=== PATIENT | female | born 1945 | race Caucasian/White ===

== ENCOUNTER 2022-10-25 01:04 | Inpatient (IN) ==
[2022-10-25] MEDS ORDERED: ONDANSETRON INJ 2 MG/ML 2 ML VIAL IV STA ×2 (01:09→02:56)
[2022-10-25] MEDS ORDERED: SODIUM CHLORIDE 0.9% 1000ML 1,000 ML IV ONE ×2 (01:09→05:23)
[2022-10-25] MEDS ORDERED: fentaNYL citrate PF 100 MCG/2 ML VIAL IV STA ×2 (01:09→02:56)
--- NOTE | 2022-10-25 01:13 | Emergency Department Note ---
History of Present Illness General Chief complaint: Abdominal Pain Stated complaint: Diarrhea History of Present Illness 77-year-old female presents emergency department with complaint of nausea vomiting abdominal pain and bloody stools that started at approximately 5 PM this evening. Patient has a prior history of colon resection hysterectomy appendectomy and diverticulitis. Patient states that she is extremely nauseated had shaking chills rigors. Patient denies any other complaints except that she did state on arrival that she had chest pain at 5 PM and took 2 Excedrin. Patient does not complain of any chest pain at this time. There are no other mitigating or alleviating factors Home Medications Medication Instructions Recorded Confirmed Type acetaminophen 325 mg tablet 325 mg PO Q4 PRN Pain 11/16/21 10/25/22 History atorvastatin 20 mg tablet 20 mg PO DAILY 11/16/21 10/25/22 History carbidopa 25 mg-levodopa 100 mg 1 tab PO 5XD 11/16/21 10/25/22 History tablet denosumab 60 mg/mL subcutaneous 60 mg subcut UD 11/16/21 10/25/22 History syringe (Prolia) duloxetine 30 mg capsule,delayed 30 mg PO QPM 11/16/21 10/25/22 History release famotidine 20 mg tablet 20 mg PO BID 11/16/21 10/25/22 History lisinopril 20 mg tablet 20 mg PO BID 11/16/21 10/25/22 History metoprolol succinate 25 mg 25 mg PO HS 11/16/21 10/25/22 History tablet,extended release 24 hr metronidazole 0.75 % topical cream 1 applic topical BID PRN ROSACEA 11/16/21 10/25/22 History nortriptyline 10 mg capsule 10 mg PO HS 11/16/21 10/25/22 History potassium chloride 20 mEq 20 meq PO QAM 11/16/21 10/25/22 History tablet,extended release ldzmdsam-udo-fdiba acid 0.4 1 tab PO DAILY 10/25/22 10/25/22 History mg-lycopene 300 mcg-lutein 250 mcg tablet nitrofurantoin macrocrystal 100 mg 100 mg PO HS 10/25/22 10/25/22 History capsule Allergies Allergy/AdvReac Type Severity Reaction Status Date / Time mannitol [From Reclast] Allergy Unknown INFLAMMATORY Verified 10/25/22 01:33 ARTHRITIS Penicillins Allergy Unknown FROM Verified 10/25/22 01:33 CHILDHOOD, UNKNOWN DETAILS sulfamethoxazole Allergy Unknown Hives Verified 10/25/22 01:33 [From Bactrim] trimethoprim [From Bactrim] Allergy Unknown Hives Verified 10/25/22 01:33 water for injection,sterile Allergy Unknown INFLAMMATORY Verified 10/25/22 01:33 [From Reclast] ARTHRITIS zoledronic acid Allergy Unknown INFLAMMATORY Verified 10/25/22 01:33 [From Reclast] ARTHRITIS amlodipine AdvReac swelling Verified 10/25/22 01:33 in ankles Past Med/Surg History Medical History Acid reflux Age related osteoporosis Fecal incontinence SACONEURAL MODULATOR IMPLANTED LEFT BUTTOX Frequent UTI PROPHYLACTIC ABX FOR DAILY MOST RECENT JUL 2021 - NO CURRENT SYMPTOMS History of cystocele & RECTOCELE REPAIR History of GI bleed 2014 History of pyelonephritis History of skin cancer HTN (hypertension) Hyperlipidemia Inflammatory arthritis Osteoarthritis Parkinson disease Rosacea Scoliosis Surgical History History of bowel resection FOR FAILED RECTOCELE History of cataract surgery right History of colonoscopy History of endoscopy History of hernia repair History of oophorectomy History of surgery SACONEURAL MODULATOR IMPLANT LEFT BUTTOX History of tonsillectomy and adenoidectomy History of vaginal hysterectomy WITH APPENDECTOMY Family History Grandmother (Maternal) Family history of diabetes mellitus Family history of colon cancer Social History Smoking Status: Former smoker Tobacco Type: Cigarettes Second Hand Exposure: No; Hx Alcohol Use: Yes (quit ~1991) Hx Substance Use: No Preferred Language: Portuguese Communication Ability: Effective Sociology Research Assistant Required: No Beliefs That Will Affect Care: None Current Living Situation: Spouse Feels Safe at Home: Yes Assistive Devices: Glasses and Other Review of Systems A total of 10 systems reviewed and were otherwise negative Cardiovascular: + chest pain Gastrointestinal: + abdominal pain, + nausea, + vomiting and + blood in stools Physical Exam Vital Signs Vital Signs - 24 hr 10/25/22 01:34 10/25/22 01:35 10/25/22 01:32 Temperature 36.4 C L Temperature Source Axillary Pulse Rate 75 75 78 Pulse Rate from SpO2 Sensor Pulse Rhythm Regular Respiratory Rate 23 22 Respiratory Effort / Characteristics Non-Labored Spontaneous Respiratory Depth Normal Respiratory Pattern Regular Blood Pressure 207/96 H Blood Pressure Mean 133 Blood Pressure Position Semi-fowlers Pulse Oximetry 100 100 Oxygen Delivery Method Room Air Room Air Sepsis Recent Fever Within 48 Hours No Sepsis New/Unexplained Change in Mental Status N/A Sepsis Action Taken by Nursing No Action Required 10/25/22 02:15 10/25/22 02:15 10/25/22 03:00 Temperature Temperature Source Pulse Rate 78 Pulse Rate from SpO2 Sensor 79 Pulse Rhythm Respiratory Rate 23 Respiratory Effort / Characteristics Respiratory Depth Respiratory Pattern Blood Pressure 194/96 H 169/101 H Blood Pressure Mean 128 123 Blood Pressure Position Pulse Oximetry 99 Oxygen Delivery Method Room Air Sepsis Recent Fever Within 48 Hours Sepsis New/Unexplained Change in Mental Status Sepsis Action Taken by Nursing 10/25/22 03:00 10/25/22 03:30 10/25/22 03:30 Temperature Temperature Source Pulse Rate 86 94 H Pulse Rate from SpO2 Sensor Pulse Rhythm Respiratory Rate 22 19 Respiratory Effort / Characteristics Respiratory Depth Respiratory Pattern Blood Pressure 181/96 H Blood Pressure Mean 124 Blood Pressure Position Pulse Oximetry Oxygen Delivery Method Sepsis Recent Fever Within 48 Hours Sepsis New/Unexplained Change in Mental Status Sepsis Action Taken by Nursing GENERAL: Patient is awake alert in no acute distress but patient is anxious EYES: The conjunctivae are clear. The pupils are round and reactive. EARS, NOSE, MOUTH AND THROAT: The nose is without any evidence of any deformity. Mucous membranes are moist. Tongue is midline. NECK: The neck is nontender and supple. RESPIRATORY: Normal respiratory effort is noted there is no evidence of wheezing rhonchi or rales CARDIOVASCULAR: Regular rate and rhythm noted there no murmurs rubs or gallops normal S1 normal S2. GASTROINTESTINAL: The abdomen is soft. Abdomen is tender in the right lower quadrant there is no normal aortic pulsations or masses there is a midline surgical scar present; bowel sounds are present BACK: No midline tenderness or or step-off noted range of motion in flexion extension as well as rotation no signs of muscle spasm noted MUSCULOSKELETAL/EXTREMITIES: There is no evidence of gross deformity full range of motion is noted in the hips and shoulders. SKIN: There is no obvious evidence of any rash. There are no petechiae, pallor or cyanosis noted. NEUROLOGIC: Patient is awake alert and oriented x3 strength is symmetric Course Reevaluation(s) Reevaluation #1: Patient was started on IV fluids, IV Zofran, IV fentanyl. Patient continued to complain of pain. Patient's abdomen soft. [facility] Time: 03:48 Reevaluation #2: Patient was ordered 2 L of fluid has an elevated lactate and has an elevated white blood cell count. [facility] the patient will be receiving antibiotics. The differential still includes ischemic colitis as well. CT was not revealing. Patient will be admitted. Patient is not in septic shock at the time of admission Time: 04:30 Consultations Consultation #1: [facility] Time: 03:48 Administered Medications Discontinued Medications Fentanyl Citrate (Fentanyl Citrate Pf 100 Mcg/2 Ml Vial) 50 mcg IV NOW STA Stop: 10/25/22 01:10 Last Admin: 10/25/22 01:28 Dose: 50 mcg Documented By: Fentanyl Citrate (Fentanyl Citrate Pf 100 Mcg/2 Ml Vial) 50 mcg IV NOW STA Stop: 10/25/22 02:57 Last Admin: 10/25/22 03:01 Dose: 50 mcg Documented By: Sodium Chloride (Nss 1000ml) 1,000 mls @ 999 mls/hr IV .Q1H1M ONE Stop: 10/25/22 02:09 Last Infusion: 10/25/22 02:55 Dose: 0 mls/hr Documented By: Admin: 10/25/22 01:13 Dose: 999 mls/hr Documented By: Promethazine HCl (Phenergan) 12.5 mg in 50.5 mls @ 202 mls/hr IV NOW STA Stop: 10/25/22 04:44 Last Admin: 10/25/22 04:46 Dose: 202 mls/hr Documented By: Ioversol (Optiray 350 100ml) 100 ml IV ONCE ONE Stop: 10/25/22 01:56 Last Admin: 10/25/22 01:55 Dose: 86 ml Documented By: KARLOS Morphine Sulfate (Morphine Sulfate 2 Mg/Ml Carp) 2 mg IV NOW STA Stop: 10/25/22 04:28 Last Admin: 10/25/22 04:38 Dose: 2 mg Documented By: Ondansetron HCl (Ondansetron Inj 2 Mg/Ml 2 Ml Vial) 4 mg IV NOW STA Stop: 10/25/22 01:10 Last Admin: 10/25/22 01:28 Dose: 4 mg Documented By: Ondansetron HCl (Ondansetron Inj 2 Mg/Ml 2 Ml Vial) 4 mg IV NOW STA Stop: 10/25/22 02:57 Last Admin: 10/25/22 03:01 Dose: 4 mg Documented By: Medical Decision Making Medical Records Attestation: I reviewed the patient's medical records. Home Medications Current Medication List: was personally reviewed by ia Laboratory Data Attestation: I reviewed the patient's lab results. Patient has leukocytosis as interpreted by me 10/25/22 01:14 10/25/22 01:14 Lab Results 10/25/22 10/25/22 10/25/22 Range/Units 01:14 01:14 01:53 WBC 18.02 H (4.8-10.8) K/ul RBC 5.36 (4.20-5.40) M/uL Hgb 16.3 H (12.0-16.0) g/dl Hct 47.1 H (37.0-47.0) % MCV 87.9 (80.0-100.0) fL MCH 30.4 (25.0-34.0) pg MCHC 34.6 (32.0-36.0) g/dL RDW Std Deviation 44.0 (36.4-46.3) fL RDW Coeff of Fariba 13.9 (11.5-14.5) % Plt Count 189 (130-400) K/uL MPV 11.4 (9.4-12.4) fL Immature Gran % (Auto) 0.5 % Neut % (Auto) 85.2 % Lymph % (Auto) 5.3 % Cloud % (Auto) 8.7 % Eos % (Auto) 0.1 % Baso % (Auto) 0.2 % Neut # (Auto) 15.37 H (1.40-6.50) K/uL Lymph # (Auto) 0.95 L (1.2-3.4) K/uL Cloud # (Auto) 1.56 H (0.11-0.59) K/uL Eos # (Auto) 0.01 (0-0.50) K/uL Baso # (Auto) 0.04 (0-0.2) K/uL Immature Gran # (Auto) 0.09 (0.01-0.20) K/uL Sodium 137 (136-145) mmol/L Potassium 3.4 L (3.5-5.1) mmol/L Chloride 106 (98-107) mmol/L Carbon Dioxide 20 L (21-32) mmol/L Anion Gap 11 (3-11) BUN 36 H (6-23) mg/dl Creatinine 0.66 (0.6-1.2) mg/dl Est Cr Clr Drug Dosing 59.9 ml/min Est GFR ( Amer) 97.4 ml/min Est GFR (Non-Af Amer) 84.0 ml/min BUN/Creatinine Ratio 54.5 H (10-20) Glucose 161 H (70-99(Fasting)) mg/dl Lactate (0.4-2.0) mmol/L Calcium 8.8 (8.6-10.3) mg/dl Total Bilirubin 0.7 (0.2-1.0) mg/dl AST 32 (13-39) U/L ALT 25 (7-52) U/L Alkaline Phosphatase 80 (34-104) U/L Troponin I High Sens 6.5 (0-14) pg/ml Total Protein 5.7 L (6.0-8.3) gm/dl Albumin 3.5 (3.4-5.0) gm/dl Globulin 2.2 L (2.5-4.0) gm/dl Albumin/Globulin Ratio 1.6 (0.9-2) Lipase 21 (11-82) U/L Urine Color Urine Appearance (Clear) Urine pH (4.5-7.5) Ur Specific [place] (1.000-1.030) Urine Protein (Negative) Urine Glucose (UA) (Negative) Urine Ketones (Negative) Urine Blood (Negative) Urine Nitrite (Negative) Urine Bilirubin (Negative) Urine Urobilinogen (Negative) Ur Leukocyte Esterase (Negative) SARS-CoV-2, RNA, NAAT NEGATIVE (NEGATIVE) 10/25/22 10/25/22 Range/Units 01:57 04:24 WBC (4.8-10.8) K/ul RBC (4.20-5.40) M/uL Hgb (12.0-16.0) g/dl Hct (37.0-47.0) % MCV (80.0-100.0) fL MCH (25.0-34.0) pg MCHC (32.0-36.0) g/dL RDW Std Deviation (36.4-46.3) fL RDW Coeff of Fariba (11.5-14.5) % Plt Count (130-400) K/uL MPV (9.4-12.4) fL Immature Gran % (Auto) % Neut % (Auto) % Lymph % (Auto) % Cloud % (Auto) % Eos % (Auto) % Baso % (Auto) % Neut # (Auto) (1.40-6.50) K/uL Lymph # (Auto) (1.2-3.4) K/uL Cloud # (Auto) (0.11-0.59) K/uL Eos # (Auto) (0-0.50) K/uL Baso # (Auto) (0-0.2) K/uL Immature Gran # (Auto) (0.01-0.20) K/uL Sodium (136-145) mmol/L Potassium (3.5-5.1) mmol/L Chloride (98-107) mmol/L Carbon Dioxide (21-32) mmol/L Anion Gap (3-11) BUN (6-23) mg/dl Creatinine (0.6-1.2) mg/dl Est Cr Clr Drug Dosing ml/min Est GFR ( Amer) ml/min Est GFR (Non-Af Amer) ml/min BUN/Creatinine Ratio (10-20) Glucose (70-99(Fasting)) mg/dl Lactate 3.0 H* (0.4-2.0) mmol/L Calcium (8.6-10.3) mg/dl Total Bilirubin (0.2-1.0) mg/dl AST (13-39) U/L ALT (7-52) U/L Alkaline Phosphatase (34-104) U/L Troponin I High Sens (0-14) pg/ml Total Protein (6.0-8.3) gm/dl Albumin (3.4-5.0) gm/dl Globulin (2.5-4.0) gm/dl Albumin/Globulin Ratio (0.9-2) Lipase (11-82) U/L Urine Color Yellow Urine Appearance Clear (Clear) Urine pH 6.0 (4.5-7.5) Ur Specific [place] 1.019 (1.000-1.030) Urine Protein Negative (Negative) Urine Glucose (UA) Negative (Negative) Urine Ketones Trace H (Negative) Urine Blood Negative (Negative) Urine Nitrite Negative (Negative) Urine Bilirubin Negative (Negative) Urine Urobilinogen Negative (Negative) Ur Leukocyte Esterase Negative (Negative) SARS-CoV-2, RNA, NAAT (NEGATIVE) Imaging Data Attestation: I personally reviewed and interpreted this imaging study as follows: My Impression: CT abdomen pelvis interpreted by me is negative for bowel obstruction Radiologist's Impression: Abdomen/Pelvis CT 10/25/22 01:09 Exam(s): CT ABDOMEN + PELVIS With Contrast IV Amt: 86 ML OPTIRAY 350 EXAM: CT Abdomen and Pelvis With Intravenous Contrast CLINICAL HISTORY: Abdominal pain. TECHNIQUE: Axial computed tomography images of the abdomen and pelvis with intravenous contrast. CTDI is 5.68 mGy and DLP is 256.34 mGy-cm. Automated exposure control was utilized for the study. A dose lowering technique was utilized adhering to the principles of ALARA. CONTRAST: Patient received 86 ML OPTIRAY 350 of IV contrast COMPARISON: No relevant prior studies available. FINDINGS: Lung bases: Unremarkable. No mass. No consolidation. ABDOMEN: Liver: Unremarkable. No mass. Gallbladder and bile ducts: Unremarkable. No calcified stones. No ductal dilation. Pancreas: Unremarkable. No mass. No ductal dilation. Spleen: Unremarkable. No splenomegaly. Adrenals: Unremarkable. No mass. Kidneys and ureters: Mild bilateral hydronephrosis. Nonobstructing punctate right renal calculus. No obstructing nephrolithiasis. Stomach and bowel: The colon is fluid-filled, this is consistent with diarrheal state. Diverticulosis. No obstruction. No mucosal thickening. PELVIS: Appendix: No findings to suggest acute appendicitis. Bladder: Unremarkable. No mass. Reproductive: Unremarkable as visualized. ABDOMEN and PELVIS: Intraperitoneal space: Unremarkable. No free air. No significant fluid collection. Bones/joints: There are degenerative changes of the spine. No fracture. No dislocation. Soft tissues: Unremarkable. Vasculature: Mild atherosclerosis. No abdominal aortic aneurysm. Lymph nodes: Unremarkable. No enlarged lymph nodes. IMPRESSION: 1. Mild bilateral hydronephrosis. 2. The colon is fluid-filled, this is consistent with diarrheal state. 3. Nonobstructing punctate right renal calculus. No obstructing nephrolithiasis. 4. Diverticulosis. Electronically signed by: Lay Perea MD 10/25/22 03:37 AM ECG Data Attestation: I personally reviewed and interpreted this ECG as follows: Additional Comments: EKG interpreted by me sinus rhythm rate of [address]-T change no obvious ST segment elevation or depression normal intervals normal axis Telemetry was ordered by me, interpreted as sinus rhythm rate of 70 MDM Narrative Medical decision making differential diagnosis includes colitis, diverticulitis, bowel obstruction, gastroenteritis, lower GI bleed, electrolyte abnormality Plan is to check labs, EKG, CT abdomen pelvis, give IV fluids, antiemetics, opiates EMS gave me bedside report External medical records were reviewed by me Patient continued to complain of abdominal pain was started on IV fluids Zofran and fentanyl x2. Patient has an elevated white blood cell count, patient's CT is unrevealing, [facility] Impression & Plan Abdominal pain, Leukocytosis Discharge Plan Visit Data Chief Complaint: Abdominal Pain Stated Complaint: Diarrhea ED Provider: Brett Alexander Discharge Problem: Abdominal pain, Leukocytosis Patient Disposition: Admitted As Inpatient Forms Stand Alone Forms: My [facility] Prescriptions Prescriptions: No Action acetaminophen 325 mg Tablet 325 mg PO Q4 PRN (Reason: Pain) atorvastatin 20 mg Tablet 20 mg PO DAILY lisinopril 20 mg Tablet 20 mg PO BID famotidine 20 mg Tablet 20 mg PO BID nortriptyline 10 mg Capsule 10 mg PO HS metronidazole 0.75 % Cream 1 applic TOPICAL BID PRN (Reason: ROSACEA) Rx Instructions: apply to face metoprolol succinate 25 mg Tablet Extended Release 24 Hr 25 mg PO HS carbidopa-levodopa 25-100 mg Tablet 1 tab PO 5XD Patient Comments: 5 X PER DAY 7 AM , 11 AM, 3 PM, 7 PM AND 11 PM Rx Instructions: 0700,1100,1500,1900,2300 duloxetine 30 mg Capsule,Delayed Release(Dr/Ec) 30 mg PO QPM Prolia 60 mg/mL Syringe 60 mg SUBCUT UD Patient Comments: EVERY 6 MONTHS - LAST EARLY AUG 2021 potassium chloride 20 mEq Tablet Extended Release 20 meq PO QAM nitrofurantoin macrocrystal 100 mg Capsule 100 mg PO HS Rx Instructions: must administer with a meal/food Complete 50 Plus 0.4 mg-300 mcg- 250 mcg Tablet 1 tab PO DAILY Referrals Referrals: Ese Salazar DO [Primary Care Provider] -
[2022-10-25 01:54] LABS: Basophils # (auto) 0.04 K/uL (0-0.2); Basophils % (auto) 0.2 %; Eosinophils # (auto) 0.01 K/uL (0-0.50); Eosinophils % (auto) 0.1 %; Hematocrit (blood only) 47.1 % (37.0-47.0); Hemoglobin 16.3 g/dl (12.0-16.0); Immature Granulocytes # (auto) 0.09 K/uL (0.01-0.20); Immature Granulocytes % (auto) 0.5 %; Lymphocytes # (auto) 0.95 K/uL (1.2-3.4); Lymphocytes % (auto) 5.3 %; Mean Corpuscular Hemoglobin 30.4 pg (25.0-34.0); Mean Corpuscular Hgb Conc 34.6 g/dL (32.0-36.0); Mean Corpuscular Volume 87.9 fL (80.0-100.0); Mean Platelet Volume 11.4 fL (9.4-12.4); Monocytes # (auto) 1.56 K/uL (0.11-0.59); Monocytes % (auto) 8.7 %; Neutrophils # (auto) 15.37 K/uL (1.40-6.50); Neutrophils % (auto) 85.2 %; Platelet Count 189 K/uL (130-400); RDW Coefficient of Variation 13.9 % (11.5-14.5); Red Blood Count 5.36 M/uL (4.20-5.40); White Blood Count 18.02 K/ul (4.8-10.8)
[2022-10-25] MEDS ORDERED: OPTIRAY 350 100ml IV ONE (01:55)
[2022-10-25 02:55] LABS: Albumin Globulin Ratio 1.6 (0.9-2); Albumin Level 3.5 gm/dl (3.4-5.0); BUN Creatinine Ratio 54.5 (10-20); Bilirubin,Total 0.7 mg/dl (0.2-1.0); Calcium 8.8 mg/dl (8.6-10.3); Creatinine Clr Calc Pharmacy 59.9 ml/min; Est GFR (African American) 97.4 ml/min; Globulin 2.2 gm/dl (2.5-4.0); Potassium 3.4 mmol/L (3.5-5.1); Total Protein 5.7 gm/dl (6.0-8.3); Troponin I High Sensitivity 6.5 pg/ml (0-14)
[2022-10-25 03:01] LABS: Appearance Urine Clear (Clear); Bilirubin Urine Negative (Negative); Blood Urine Negative (Negative); Color Urine Yellow; Glucose Urine UA Negative (Negative); Ketones Urine Trace (Negative); Leukocyte Esterase Urine Negative (Negative); Nitrite Urine Negative (Negative); Protein Urine Negative (Negative); Specific Gravity Urine 1.019 (1.000-1.030); Urobilinogen Urine Negative (Negative)
--- NOTE | 2022-10-25 03:38 | CT Scan Report ---
Exam(s): CT ABDOMEN + PELVIS With Contrast IV Amt: 86 ML OPTIRAY 350 EXAM: CT Abdomen and Pelvis With Intravenous Contrast CLINICAL HISTORY: Abdominal pain. TECHNIQUE: Axial computed tomography images of the abdomen and pelvis with intravenous contrast. CTDI is 5.68 mGy and DLP is 256.34 mGy-cm. Automated exposure control was utilized for the study. A dose lowering technique was utilized adhering to the principles of ALARA. CONTRAST: Patient received 86 ML OPTIRAY 350 of IV contrast COMPARISON: No relevant prior studies available. FINDINGS: Lung bases: Unremarkable. No mass. No consolidation. ABDOMEN: Liver: Unremarkable. No mass. Gallbladder and bile ducts: Unremarkable. No calcified stones. No ductal dilation. Pancreas: Unremarkable. No mass. No ductal dilation. Spleen: Unremarkable. No splenomegaly. Adrenals: Unremarkable. No mass. Kidneys and ureters: Mild bilateral hydronephrosis. Nonobstructing punctate right renal calculus. No obstructing nephrolithiasis. Stomach and bowel: The colon is fluid-filled, this is consistent with diarrheal state. Diverticulosis. No obstruction. No mucosal thickening. PELVIS: Appendix: No findings to suggest acute appendicitis. Bladder: Unremarkable. No mass. Reproductive: Unremarkable as visualized. ABDOMEN and PELVIS: Intraperitoneal space: Unremarkable. No free air. No significant fluid collection. Bones/joints: There are degenerative changes of the spine. No fracture. No dislocation. Soft tissues: Unremarkable. Vasculature: Mild atherosclerosis. No abdominal aortic aneurysm. Lymph nodes: Unremarkable. No enlarged lymph nodes. IMPRESSION: 1. Mild bilateral hydronephrosis. 2. The colon is fluid-filled, this is consistent with diarrheal state. 3. Nonobstructing punctate right renal calculus. No obstructing nephrolithiasis. 4. Diverticulosis. Electronically signed by: Lay Perea MD 10/25/22 03:37 AM
[2022-10-25] MEDS ORDERED: PROMETHAZINE HCL 12.5 MG in SODIUM CHLORIDE 0.9% 50 ML IV STA (04:27)
[2022-10-25] MEDS ORDERED: MoRPHine SULFATE 2 MG/ML CARP IV STA (04:27)
[2022-10-25] MEDS ORDERED: PROMETHAZINE 12.5 MG/50.5 ML BAG IV STA (04:30)
[2022-10-25] MEDS: POTASSIUM CHLORIDE / WTR 10 MEQ/100 ML PLCT IV SCH ×2 (05:52→06:53)
[2022-10-25] MEDS ORDERED: NITROGLYCERIN SL 0.4 MG/TAB TAB SL PRN (06:11)
[2022-10-25] MEDS ORDERED: hydrALAZINE HCL 20 MG/ML VIAL IV PRN (06:11)
[2022-10-25 07:00] LABS: Basophils # (auto) 0.02 K/uL (0-0.2); Basophils % (auto) 0.1 %; Hematocrit (blood only) 45.8 % (37.0-47.0); Hemoglobin 15.8 g/dl (12.0-16.0); Immature Granulocytes # (auto) 0.06 K/uL (0.01-0.20); Immature Granulocytes % (auto) 0.4 %; Lymphocytes # (auto) 0.66 K/uL (1.2-3.4); Lymphocytes % (auto) 4.8 %; Mean Corpuscular Hgb Conc 34.5 g/dL (32.0-36.0); Mean Corpuscular Volume 87.1 fL (80.0-100.0); Mean Platelet Volume 10.5 fL (9.4-12.4); Monocytes # (auto) 0.65 K/uL (0.11-0.59); Monocytes % (auto) 4.7 %; Platelet Count 197 K/uL (130-400); RDW Coefficient of Variation 13.8 % (11.5-14.5); RDW Standard Deviation 44.4 fL (36.4-46.3); Red Blood Count 5.26 M/uL (4.20-5.40); White Blood Count 13.89 K/ul (4.8-10.8)
[2022-10-25 07:18] LABS: BUN Creatinine Ratio 40.6 (10-20); Creatinine Clr Calc Pharmacy 57.3 ml/min; Est GFR (Non-African American) 82.8 ml/min; Magnesium 1.8 mg/dl (1.7-2.4); Potassium 3.7 mmol/L (3.5-5.1)
[2022-10-25 07:25] LABS: Troponin I High Sensitivity 12.8 pg/ml (0-14)
[2022-10-25] MEDS: D5W AND 1/2NSS 1,000 ML IV SCH ×2 (07:30→14:07)
--- NOTE | 2022-10-25 07:37 | History and Physical Report ---
DATE OF ADMISSION: 10/25/2022. CHIEF COMPLAINT: Abdominal pain, nausea, vomiting, diarrhea. HISTORY OF PRESENT ILLNESS: A 77-year-old female with past medical history significant for hypertension, GERD, history of fecal incontinence, cystocele, senile osteoporosis, degenerative disk disease, Parkinson's disease, depression, history of GI bleed, history of recurrent UTIs, presents with nausea, vomiting, abdominal pain, and bloody diarrhea. The patient says since yesterday 8:00 p.m., had several episodes of diarrhea. She noticed blood in her stools and also she had vomiting. She was having a episode of vomiting when I was examining the patient, greenish vomitus. Complains of severe abdominal pain, radiating to the back. She said earlier around 4:00 p.m. yesterday, she had some chest tightness, but that got resolved now. Denies any shortness of breath, no fevers, no cough. Has some runny nose. No sore throat. No headache. She is micturating fine, afebrile. No eating of food outside. No one is sick in the family. ALLERGIES: BACTRIM, PENICILLIN, MANNITOL, RECLAST, ZOLEDRONIC ACID, AMLODIPINE. PAST MEDICAL HISTORY: As mentioned above. PAST SURGICAL HISTORY: induced by D and E, appendectomy, implantation of neurostimulator in sacral nerve in 2019, removal of bilateral ovaries, tonsillectomy and adenoidectomy, repair of bladder and vaginal cystocele, vaginal hysterectomy. MEDICATIONS: The patient is on Tylenol 325 mg p.o. q. 4 hours p.r.n., atorvastatin 20 mg p.o. daily, carbidopa/levodopa 1 tablet p.o. 5 times a day, duloxetine 30 mg p.o. p.m., famotidine 20 mg p.o. b.i.d., lisinopril 20 mg p.o. b.i.d., metoprolol succinate 25 mg p.o. at bedtime, multivitamin 1 tablet p.o. daily, nitrofurantoin 100 mg p.o. at bedtime, nortriptyline 10 mg p.o. at bedtime, potassium chloride 20 mEq p.o. a.m., Prolia 60 mg subcutaneous as directed. FAMILY HISTORY: Significant for mother has breast cancer, hypertension, stroke; father has prostate cancer, heart disorder; maternal grandmother had diabetes and heart disorder. SOCIAL HISTORY: . Quit smoking in 1985, smoked 1 pack a day for 10 years. No alcohol use. No drug use. REVIEW OF SYSTEMS: As per HPI. Rest of the review of systems is negative. PHYSICAL EXAMINATION: GENERAL: The patient is of moderate build, seems to be in pain. VITAL SIGNS: Temperature 36.4, pulse 94, respiratory rate 19, blood pressure 181/96, oxygen 99% on room air. HEENT: Extraocular muscles intact. Atraumatic. NECK: No neck masses seen. CARDIOVASCULAR: S1 and S2 heard. Regular rate and rhythm. No murmur, no gallop. RESPIRATORY SYSTEM: Normal AP diameter. No accessory muscle use. No wheezing. ABDOMEN: Soft, bowel sounds sluggish. No distention. Diffuse tenderness and guarding present. No rigidity. CENTRAL NERVOUS SYSTEM: Alert and oriented. Speech is clear. No facial droop. Obeys simple commands. Moves extremities. EXTREMITIES: No edema, no erythema. LABORATORY DATA: WBC 18, hemoglobin 16.3, hematocrit 47.1, platelets 189. Sodium 137, potassium 3.4, chloride 106, bicarbonate 20, BUN 36, creatinine 0.6, serum glucose 161. Lactate pending. Calcium 8.8, total bilirubin 0.7, AST 32, ALT 25, alkaline phosphatase 80. Troponin I high sensitivity 6.5, Lipase 21. Urinalysis, trace ketones. SARS-CoV-2 rapid test negative. IMAGING DATA: CT abdomen and pelvis with IV contrast, mild bilateral hydronephrosis. The colon is fluid filled. This is consistent with diarrheal state. Nonobstructing right renal calculus, nonobstructing nephrolithiasis, diverticulosis. EKG: Sinus rhythm with PACs at the rate of 70, nonspecific ST abnormalities. ASSESSMENT AND PLAN: This 77-year-old female presents with abdominal pain, nausea, vomiting, and bloody diarrhea. 1. Abdominal pain, nausea, vomiting, bloody diarrhea. CT abdomen and pelvis showed some diverticulosis and consistent with diarrheal state, otherwise unremarkable. Will keep her n.p.o., IV fluids, IV antiemetics, IV morphine p.r.n. Will do stool cultures and stool for C. diff and consult GI. Closely monitor in the med tele.Follow labs. 2. Leukocytosis, possibly from diarrheal illness. Will follow the repeat labs. 3. Hypertension: Continue her home lisinopril and metoprolol succinate. Will monitor the blood pressure. 4. Gastroesophageal reflux disease: Will place on IV Pepcid for now. 5. History of Parkinson's: Continue carbidopa/levodopa. 6. Hyperlipidemia: Continue statin. 7. Depression: Continue duloxetine. 8. History of recurrent urinary tract infections: On Macrobid. 9. Deep venous thrombosis prophylaxis: Sequential compression devices for now. DISPOSITION: Closely monitor in the med tele. PT/OT prior to discharge. Social service to help with discharge planning. Level 1 full code. Job [facility] [id number] [facility]
[2022-10-25] MEDS: CARBIDOPA/LEVODOPA 25/100MG TAB PO SCH ×5 (07:38→23:06)
[2022-10-25] MEDS: ATORVASTATIN 20 MG TAB PO SCH (08:06)
[2022-10-25] MEDS: POTASSIUM CHLORIDE CRTAB 20 MEQ TABCR PO SCH (08:06)
[2022-10-25] MEDS ORDERED: FAMOTIDINE 20MG/5ML IV PUSH IV ONE (08:09)
[2022-10-25] MEDS: FAMOTIDINE 20 MG in SYRINGE 3 ML IV SCH ×2 (08:09→20:16)
[2022-10-25] MEDS ORDERED: lisinopril 20 MG TAB PO SCH (09:00)
[2022-10-25] MEDS: MoRPHine SULFATE 4 MG/ML 1 ML CARP\\VIAL IV PRN ×2 (09:55→15:53)
--- NOTE | 2022-10-25 10:15 | Gastrointestinal Consultation ---
Date of Consultation October 25, 2022 Assessment & Plan (1) Abdominal pain: Though not specifically seen on CT, her symptoms/presentation are most consistent with ischemic colitis. (2) Leukocytosis: Plan 1. IV Cipro/Flagyl. 2. Clear liquids po. 3. Daily CBC, CMP. 4. Though does not seem to have a surgical abdomen on exam, would consider surgical consult if continues w severe pain. Supervising Physician Co-Signing Physician Notes I performed a history and physical examination of the patient today, including specifically on physical exam - soft abdomen. I have discussed the patient's management with the advanced practitioner. Please refer to the nurse practitioner's note for the documented findings and plan of care. Colitis, Infectious Vs ischemic. Stool studies. IV ABx. Colonoscopy as OP. Recall GI if needed. History of Present Illness Reason for Consultation: Nausea, vomiting, bloody diarrhea Requesting Physician: Dr. Brar Attending Physician: Hernan Veronica MD History of Present Illness Ms. Bambi Rosario is a 77yr old female pt of Dr. Ese Salazar w a hx of HTN, GERD, osteoporosis, DDD, Parkinson's disease, UTIs. At the time that I saw her, she was in pain, indicating the area being the lower part of the abdomen and she had just received pain medication and was groggy. She was able to tell me that her symptoms began suddenly yesterday afternoon around 5PM, initially w sharp pain, followed by a BM that was brown w blood mixed in and was loose. She also had chills. After that she had 2 more liquid BMs consisting of mostly blood. In the ED, she had an episode of vomiting. Stools for C-diff and GI path are pending. She hasn't yet received antibiotics. On arrival, CTAP showed a fluid filled colon w diverticulosis. WBC was 18 on arrival ->13 this morning. She is hypertensive (171/90), mildly tachycardic in the 90's and afebrile. She continues w sigificant abdominal discomfort/tenderness but abd is soft on exam Allergies Allergy/AdvReac Type Severity Reaction Status Date / Time mannitol [From Reclast] Allergy Unknown INFLAMMATORY Verified 10/25/22 01:33 ARTHRITIS Penicillins Allergy Unknown FROM Verified 10/25/22 01:33 CHILDHOOD, UNKNOWN DETAILS sulfamethoxazole Allergy Unknown Hives Verified 10/25/22 01:33 [From Bactrim] trimethoprim [From Bactrim] Allergy Unknown Hives Verified 10/25/22 01:33 water for injection,sterile Allergy Unknown INFLAMMATORY Verified 10/25/22 01:33 [From Reclast] ARTHRITIS zoledronic acid Allergy Unknown INFLAMMATORY Verified 10/25/22 01:33 [From Reclast] ARTHRITIS amlodipine AdvReac swelling Verified 10/25/22 01:33 in ankles Home Medications Medication Instructions Recorded Confirmed Type acetaminophen 325 mg tablet 325 mg PO Q4 PRN Pain 11/16/21 10/25/22 History atorvastatin 20 mg tablet 20 mg PO DAILY 11/16/21 10/25/22 History carbidopa 25 mg-levodopa 100 mg 1 tab PO 5XD 11/16/21 10/25/22 History tablet denosumab 60 mg/mL subcutaneous 60 mg subcut UD 11/16/21 10/25/22 History syringe (Prolia) duloxetine 30 mg capsule,delayed 30 mg PO QPM 11/16/21 10/25/22 History release famotidine 20 mg tablet 20 mg PO BID 11/16/21 10/25/22 History lisinopril 20 mg tablet 20 mg PO BID 11/16/21 10/25/22 History metoprolol succinate 25 mg 25 mg PO HS 11/16/21 10/25/22 History tablet,extended release 24 hr metronidazole 0.75 % topical cream 1 applic topical BID PRN ROSACEA 11/16/21 10/25/22 History nortriptyline 10 mg capsule 10 mg PO HS 11/16/21 10/25/22 History potassium chloride 20 mEq 20 meq PO QAM 11/16/21 10/25/22 History tablet,extended release [id number]-ras-greia acid 0.4 1 tab PO DAILY 10/25/22 10/25/22 History mg-lycopene 300 mcg-lutein 250 mcg tablet nitrofurantoin macrocrystal 100 mg 100 mg PO HS 10/25/22 10/25/22 History capsule Patient History Medical History Acid reflux Age related osteoporosis Fecal incontinence SACONEURAL MODULATOR IMPLANTED LEFT BUTTOX Frequent UTI PROPHYLACTIC ABX FOR DAILY MOST RECENT JUL 2021 - NO CURRENT SYMPTOMS History of cystocele & RECTOCELE REPAIR History of GI bleed 2014 History of pyelonephritis History of skin cancer HTN (hypertension) Hyperlipidemia Inflammatory arthritis Osteoarthritis Parkinson disease Rosacea Scoliosis Surgical History History of bowel resection FOR FAILED RECTOCELE History of cataract surgery right History of colonoscopy History of endoscopy History of hernia repair History of oophorectomy History of surgery SACONEURAL MODULATOR IMPLANT LEFT BUTTOX History of tonsillectomy and adenoidectomy History of vaginal hysterectomy WITH APPENDECTOMY Family History Grandmother (Maternal) Family history of diabetes mellitus Family history of colon cancer Social History Smoking Status: Former smoker Tobacco Type: Cigarettes Smoking End Date: 1985; Second Hand Exposure: No; Do You Dip or Chew Tobacco: No; Tobacco Cessation Education Requested by Patient: No Hx Alcohol Use: No Hx Substance Use: No Preferred Language: Faroese Communication Ability: Effective Education Liaison Required: No Beliefs That Will Affect Care: None Current Living Situation: Spouse Other Information That Helps Us Care for You: No Feels Safe at Home: Yes Safety Concerns: Feels Safe At This Time Assistive Devices: Glasses and Hearing Aid - Bilateral Review of Systems Review of Systems: ROS: Gen:+ chills, Prior to onset of symptoms - no weakness, fevers, weight loss; since 5PM, in pain, week, nausea. Eyes: No eye redness, or pain, no recent vision changes Resp: No SOB, no cough Cardio: + had some CP yesterday which resolved. Currently no palpitations/irregular beats, no chest pain GI: As per HPI, otherwise (-). : Denies pain on urination Skin: No jaundice, itching or new rashes Physical Exam Constitutional: well developed, well nourished, well groomed, cooperative and + in distress Eyes: PERRL, conjunctivae normal, anicteric sclerae ENMT: external ear and nose normal, oropharynx normal Neck: trachea midline, no thyromegaly Respiratory: normal respiratory effort, lungs clear to auscultation Cardiovascular: RRR, no murmur, no edema Gastrointestinal (Abdomen): Normal BS present, very tender diffusely, mild distention, soft, no palpable masses. Skin: no rashes, warm and dry (sl pale) Neurologic: Groggy but oriented when awake. Psychiatric: A+Ox3, euthymic affect Lymphatic: no cervical or axillary lymphadenopathy Results & Data Vital Signs (Past 12 Hours) Vital Signs Temp Pulse Pulse Resp BP BP Pulse Ox 10/25/22 09:19 90 18 185/97 H 97 10/25/22 08:36 37.4 C 98 H 18 189/98 H 96 10/25/22 06:30 89 18 96 10/25/22 06:00 93 H 18 95 10/25/22 06:00 168/95 H 10/25/22 05:30 95 H 16 95 10/25/22 05:30 151/101 H 10/25/22 05:00 97 H 21 94 10/25/22 05:00 161/106 H 10/25/22 05:30 95 H 10/25/22 03:30 94 H 19 10/25/22 03:30 181/96 H 10/25/22 03:00 86 22 10/25/22 03:00 169/101 H 10/25/22 02:15 78 23 99 10/25/22 02:15 194/96 H 10/25/22 01:32 78 10/25/22 01:35 75 22 100 10/25/22 01:34 36.4 C L 75 23 207/96 H 100 O2 Del Method 10/25/22 09:19 Room Air 10/25/22 08:36 Room Air 10/25/22 06:30 10/25/22 06:00 Room Air 10/25/22 06:00 10/25/22 05:30 Room Air 10/25/22 05:30 10/25/22 05:00 Room Air 10/25/22 05:00 10/25/22 05:30 10/25/22 03:30 10/25/22 03:30 10/25/22 03:00 10/25/22 03:00 10/25/22 02:15 Room Air 10/25/22 02:15 10/25/22 01:32 10/25/22 01:35 Room Air 10/25/22 01:34 Room Air Laboratory Results WBC 13.8, Hb 15.8, Hct 45.8, plts 197, Na 142, K 3.7, Cl107, CO2 25, BUN 28, Cr 0.6, glucose 191. Lactate el at 2.3. LFTs, lipase are normal Diagnostic Findings CTAP w IV contrast 10/24/22: 1. Mild bilateral hydronephrosis. 2. The colon is fluid-filled, this is consistent with diarrheal state. 3. Nonobstructing punctate right renal calculus. No obstructing nephrolithiasis. 4. Diverticulosis.
[2022-10-25] MEDS: metroNIDAZOLE 500 MG/100 ML BAG IV SCH ×2 (11:23→19:57)
[2022-10-25] MEDS: CIPROFLOXACIN / D5W 400 MG/200 ML BAG IV SCH ×2 (11:23→23:06)
[2022-10-25] MEDS: ONDANSETRON INJ 2 MG/ML 2 ML VIAL IV PRN ×2 (11:56→18:37)
--- NOTE | 2022-10-25 13:07 | Communication Note ---
Date of Service: October 25, 2022 Patient seen and examined in the emergency department. She reports significant abdominal pain in the lower part of the abdomen. She is hemodynamically stable; tachycardic likely due to pain WBC slightly downtrending from 18-13. Her lactate down trended to 2.3 from 3. On examination Alert oriented x3; in significant distress due to pain CVSS1-S2 heard Chestbilateral vesicular breath sound Abdomensoft, tenderness on palpation diffusely. Neurogrossly intact Assessment/plan Abdominal pain-colitis(ischemic versus infectious):Seen by GI; recommend supportive care, clear liquid diet, IV Cipro/Flagyl. Also recommended surgical consult. Hypertensioncontinue on home lisinopril and metoprolol. GERDIV Pepcid Parkinson'scontinue carbidopa/levodopa Hyperlipidemiacontinue statin Depressioncontinue duloxetine SCDs for DVT prophylaxis Full code
[2022-10-25] MEDS ORDERED: metroNIDAZOLE 0.75% TOPICAL GEL 45 GM TUBE TOP PRN (14:24)
[2022-10-25] MEDS ORDERED: LACTATED RINGER'S 500 ML IV ONE (16:10)
[2022-10-25] MEDS: D5W AND LACTATED RINGERS 1,000 ML IV SCH (16:30)
--- NOTE | 2022-10-25 16:42 | Communication Note ---
Date of Service: October 25, 2022 Patient seen and examined after she was transferred to the floors from the ED. She continues to have severe abdominal pain. Lactate ordered 7.8. Down trended to 3.9. Discussed with general surgery PA regarding possibility of ischemic colitis. Case was reviewed with the surgeon; patient to be monitor closely for the time being. We will change her to n.p.o. with sips with ice. LR bolus of 500 cc given; dextrose LR at 125 cc/h started.
--- NOTE | 2022-10-25 17:10 | Communication Note ---
Date of Service: October 25, 2022 Updated her son Memo Benitez ) over the phone. Answered questions/queries.
--- NOTE | 2022-10-25 17:23 | Surgery Consultation ---
Date of Consultation October 25, 2022 Assessment & Plan (1) Abdominal pain: This is a 77yF with a PMH of HTN, GERD, DDD who presents to the [facility] on 10/25/22 with complaints of abdominal pain associated with nausea/vomiting and bloody diarrhea. She underwent a CT a/p overnight that showed the colon is fluid-filled , this is consistent with diarrheal state with diverticulosis. Labs show WBC 13.8, Hbg 15.8, Cr: 0.4. She did have a lactate at one point today 7.8, but since has downtrended to 3.9. Vital signs are stable. On examination patient's abdomen is soft, mildly distended in lower abdomen, with discomfort to palpation across mid/lower belly. Agree with supportive care for concern of infectious vs. ischemic colitis. IVF, bowel rest, and IV cipro/flagyl. Stool studies pending. GI has given their recommendations as well. No plans for acute surgical intervention at this time, but please inform us if there is any change in patient's clinical status. We will continue to follow closely Supervising Physician Co-Signing Physician Notes I personally saw and evaluated the patient with Hoda Wilson PA-C and agree with the assessment and plan. 77-year-old female with likely ischemic colitis, stable Patient's been admitted to the medical service No plans for emergent exploration as she is stable Plan for IV fluid resuscitation, Cipro/Flagyl, bowel rest We will monitor her vital signs and abdominal exam and continue to follow Consideration of sigmoidoscopy/colonoscopy by GI History of Present Illness Attending Physician: Hernan Veronica MD History of Present Illness This is a 77yF with a PMH of HTN, GERD, DDD who presents to the [facility] on 10/25/22 with complaints of abdominal pain associated with nausea/vomiting and bloody diarrhea. Patient states her pain started around 8pm last night, this was associated with multiple episodes of diarrhea mixed with bright red blood (no clots). She then developed nausea/vomiting upwards of 6-8 times. She did say she took a baby aspirin yesterday thinking she had some heartburn/tightness in her chest. Due to ongoing symptoms she presented to the ER. She underwent a CT a/p overnight that showed the colon is fluid-filled, this is consistent with diarrheal state with diverticulosis. Patient denies any fevers, + chills. Last had a small amount of diarrhea this AM that was less bloody appearing. She still reports pain across the lower/mid bilateral abdomen that is slightly improved. Past surgical history includes hysterectomy, BSO, an inguinal hernia repair, cystocele and rectocele repair, appendectomy, and history of what sounds like a partial colon resection. Last colonoscopy was 3-4 years ago she states was normal outside of some diverticulosis. Allergies Allergy/AdvReac Type Severity Reaction Status Date / Time mannitol [From Reclast] Allergy Unknown INFLAMMATORY Verified 10/25/22 01:33 ARTHRITIS Penicillins Allergy Unknown FROM Verified 10/25/22 01:33 CHILDHOOD, UNKNOWN DETAILS sulfamethoxazole Allergy Unknown Hives Verified 10/25/22 01:33 [From Bactrim] trimethoprim [From Bactrim] Allergy Unknown Hives Verified 10/25/22 01:33 water for injection,sterile Allergy Unknown INFLAMMATORY Verified 10/25/22 01:33 [From Reclast] ARTHRITIS zoledronic acid Allergy Unknown INFLAMMATORY Verified 10/25/22 01:33 [From Reclast] ARTHRITIS amlodipine AdvReac swelling Verified 10/25/22 01:33 in ankles Home Medications Medication Instructions Recorded Confirmed Type acetaminophen 325 mg tablet 325 mg PO Q4 PRN Pain 11/16/21 10/25/22 History atorvastatin 20 mg tablet 20 mg PO DAILY 11/16/21 10/25/22 History carbidopa 25 mg-levodopa 100 mg 1 tab PO 5XD 11/16/21 10/25/22 History tablet denosumab 60 mg/mL subcutaneous 60 mg subcut UD 11/16/21 10/25/22 History syringe (Prolia) duloxetine 30 mg capsule,delayed 30 mg PO QPM 11/16/21 10/25/22 History release famotidine 20 mg tablet 20 mg PO BID 11/16/21 10/25/22 History lisinopril 20 mg tablet 20 mg PO BID 11/16/21 10/25/22 History metoprolol succinate 25 mg 25 mg PO HS 11/16/21 10/25/22 History tablet,extended release 24 hr metronidazole 0.75 % topical cream 1 applic topical BID PRN ROSACEA 11/16/21 10/25/22 History nortriptyline 10 mg capsule 10 mg PO HS 11/16/21 10/25/22 History potassium chloride 20 mEq 20 meq PO QAM 11/16/21 10/25/22 History tablet,extended release jmkuzgvr-rif-dvncj acid 0.4 1 tab PO DAILY 10/25/22 10/25/22 History mg-lycopene 300 mcg-lutein 250 mcg tablet nitrofurantoin macrocrystal 100 mg 100 mg PO HS 10/25/22 10/25/22 History capsule Patient History Medical History (Updated 10/26/22 @ 10:22 by Hernan Veronica MD) Acid reflux Age related osteoporosis Fecal incontinence SACONEURAL MODULATOR IMPLANTED LEFT BUTTOX Frequent UTI PROPHYLACTIC ABX FOR DAILY MOST RECENT JUL 2021 - NO CURRENT SYMPTOMS History of cystocele & RECTOCELE REPAIR History of GI bleed 2014 History of pyelonephritis History of skin cancer HTN (hypertension) Hyperlipidemia Inflammatory arthritis Osteoarthritis Parkinson disease Rosacea Scoliosis Surgical History History of bowel resection FOR FAILED RECTOCELE History of cataract surgery right History of colonoscopy History of endoscopy History of hernia repair History of oophorectomy History of surgery SACONEURAL MODULATOR IMPLANT LEFT BUTTOX History of tonsillectomy and adenoidectomy History of vaginal hysterectomy WITH APPENDECTOMY Family History Grandmother (Maternal) Family history of diabetes mellitus Family history of colon cancer Social History Smoking Status: Former smoker Tobacco Type: Cigarettes Smoking End Date: 1985; Second Hand Exposure: No; Do You Dip or Chew Tobacco: No; Tobacco Cessation Education Requested by Patient: No Hx Alcohol Use: No Hx Substance Use: No Preferred Language: Central [place] Communication Ability: Effective Speech Coach Required: No Beliefs That Will Affect Care: None Current Living Situation: Spouse Other Information That Helps Us Care for You: No Feels Safe at Home: Yes Safety Concerns: Feels Safe At This Time Assistive Devices: Glasses and Hearing Aid - Bilateral Review of Systems Constitutional: + chills; no fever Respiratory: + dyspnea (mild SOB with pain) Cardiovascular: no chest pain Gastrointestinal: + abdominal pain, + bloating, + nausea, + vomiting, + diarrhea/loose stools and + blood in stools Physical Exam Physical Exam: awake/alert Respiratory: normal respiratory effort Gastrointestinal (Abdomen): Inspection/Auscultation: + abdomen distended (some lower abdominal distention) Percussion/Palpation: + abdomen tender (ttp across mid/lower bilateral abdomen) and abdomen soft Results & Data Vital Signs (Past 12 Hours) Vital Signs Temp Pulse Pulse Resp BP BP BP 10/25/22 16:12 37.0 C 95 H 16 113/68 10/25/22 15:32 97 H 10/25/22 13:35 36.8 C 95 H 18 134/77 10/25/22 12:14 107 H 18 167/84 H 10/25/22 11:11 170/88 H 10/25/22 10:19 171/90 H 10/25/22 09:19 90 18 185/97 H 10/25/22 08:36 37.4 C 98 H 18 189/98 H 10/25/22 06:30 89 18 10/25/22 06:00 93 H 18 10/25/22 06:00 168/95 H 10/25/22 05:30 95 H 16 10/25/22 05:30 151/101 H 10/25/22 05:30 95 H Pulse Ox O2 Del Method 10/25/22 16:12 94 Room Air 10/25/22 15:32 10/25/22 13:35 96 Room Air 10/25/22 12:14 97 Room Air 10/25/22 11:11 10/25/22 10:19 10/25/22 09:19 97 Room Air 10/25/22 08:36 96 Room Air 10/25/22 06:30 96 10/25/22 06:00 95 Room Air 10/25/22 06:00 10/25/22 05:30 95 Room Air 10/25/22 05:30 10/25/22 05:30 Diagnostic Findings Exam(s): CT ABDOMEN + PELVIS With Contrast IV Amt: 86 ML OPTIRAY 350 EXAM: CT Abdomen and Pelvis With Intravenous Contrast CLINICAL HISTORY: Abdominal pain. TECHNIQUE: Axial computed tomography images of the abdomen and pelvis with intravenous contrast. CTDI is 5.68 mGy and DLP is 256.34 mGy-cm. Automated exposure control was utilized for the study. A dose lowering technique was utilized adhering to the principles of ALARA. CONTRAST: Patient received 86 ML OPTIRAY 350 of IV contrast COMPARISON: No relevant prior studies available. FINDINGS: Lung bases: Unremarkable. No mass. No consolidation. ABDOMEN: Liver: Unremarkable. No mass. Gallbladder and bile ducts: Unremarkable. No calcified stones. No ductal dilation. Pancreas: Unremarkable. No mass. No ductal dilation. Spleen: Unremarkable. No splenomegaly. Adrenals: Unremarkable. No mass. Kidneys and ureters: Mild bilateral hydronephrosis. Nonobstructing punctate right renal calculus. No obstructing nephrolithiasis. Stomach and bowel: The colon is fluid-filled, this is consistent with diarrheal state. Diverticulosis. No obstruction. No mucosal thickening. PELVIS: Appendix: No findings to suggest acute appendicitis. Bladder: Unremarkable. No mass. Reproductive: Unremarkable as visualized. ABDOMEN and PELVIS: Intraperitoneal space: Unremarkable. No free air. No significant fluid collection. Bones/joints: There are degenerative changes of the spine. No fracture. No dislocation. Soft tissues: Unremarkable. Vasculature: Mild atherosclerosis. No abdominal aortic aneurysm. Lymph nodes: Unremarkable. No enlarged lymph nodes. IMPRESSION: 1. Mild bilateral hydronephrosis. 2. The colon is fluid-filled, this is consistent with diarrheal state. 3. Nonobstructing punctate right renal calculus. No obstructing nephrolithiasis. 4. Diverticulosis. Electronically signed by: Lay Perea MD 10/25/22 03:37 AM PG Care Time/CCT Total # of Minutes Spent Total Time Spent with Patient: Total time spent is greater than 50% in coordination of care (as documented) at patient's floor/unit and/or counseling patient: Coding Level of Care Code 76823 IN/OBS CONSULT LVL 4,60M Diagnoses Abdominal pain R10.9
[2022-10-25] MEDS: ACETAMINOPHEN 1,000 MG/100 ML VIAL IV SCH (18:34)
[2022-10-25] MEDS: NORTRIPTYLINE HCL 10 MG CAP PO SCH (20:24)
[2022-10-25] MEDS: nitrofurantoin macrocrystaL 50 MG CAP PO SCH (20:25)
[2022-10-25] MEDS: DULoxetine HCL 30 MG CAP PO SCH (20:25)
[2022-10-25] MEDS: METOPROLOL SUCC 25MG EXT REL TAB PO SCH (20:25)
--- NOTE | 2022-10-25 23:10 | Communication Note ---
Date of Service: October 25, 2022 Patient was visited approximate 10:00 PM this evening. She has been admitted with infectious versus ischemic colitis. At the time of my interview the patient notes she has continued abdominal pain which has slightly improved since admission. She has not had any nausea or vomiting. On exam her abdomen is soft and nondistended. There is some diffuse tenderness in the lower abdomen but patient does not have rebound tenderness. Vital signs show the patient is normotensive with a slight tachycardia (heart rate is in the 90s) she is afebrile. During this admission patient's lactic acid is peaked at 7.8 but has improved on most recent value to 3.9. Patient is receiving intravenous fluids for hydration as well as antibiotics in the form of Cipro and Flagyl. We will continue to monitor clinically
[2022-10-26] MEDS: ACETAMINOPHEN 1,000 MG/100 ML VIAL IV SCH ×3 (02:02→17:10)
[2022-10-26] MEDS: metroNIDAZOLE 500 MG/100 ML BAG IV SCH ×3 (03:21→18:47)
--- NOTE | 2022-10-26 05:38 | Electrocardiogram Report ---
Test Reason : Blood Pressure : / mmHG Vent. Rate : 070 BPM Atrial Rate : 070 BPM P-R Int : 132 ms QRS Dur : 082 ms QT Int : 454 ms P-R-T Axes : 030 006 025 degrees QTc Int : 490 ms Poor data quality, interpretation may be adversely affected Sinus rhythm with Premature atrial complexes Possible Left atrial enlargement Nonspecific ST abnormality Prolonged QT Abnormal ECG No previous ECGs available Confirmed by Daniel Aviles ([id number]) on 10/26/2022 5:38:16 AM Referred By: REFERRED SELF Confirmed By:Daniel Aviles
[2022-10-26] MEDS: D5W AND LACTATED RINGERS 1,000 ML IV SCH ×2 (06:13→10:28)
[2022-10-26] MEDS: CARBIDOPA/LEVODOPA 25/100MG TAB PO SCH ×5 (06:14→22:20)
[2022-10-26 08:04] LABS: Basophils # (auto) 0.03 K/uL (0-0.2); Basophils % (auto) 0.2 %; Eosinophils # (auto) 0.01 K/uL (0-0.50); Eosinophils % (auto) 0.1 %; Hematocrit (blood only) 37.4 % (37.0-47.0); Immature Granulocytes # (auto) 0.11 K/uL (0.01-0.20); Immature Granulocytes % (auto) 0.7 %; Lymphocytes # (auto) 1.43 K/uL (1.2-3.4); Lymphocytes % (auto) 9.1 %; Mean Corpuscular Hemoglobin 30.2 pg (25.0-34.0); Mean Corpuscular Hgb Conc 34.8 g/dL (32.0-36.0); Mean Corpuscular Volume 86.8 fL (80.0-100.0); Mean Platelet Volume 10.9 fL (9.4-12.4); Monocytes # (auto) 1.16 K/uL (0.11-0.59); Monocytes % (auto) 7.4 %; Neutrophils # (auto) 13.04 K/uL (1.40-6.50); Neutrophils % (auto) 82.5 %; Platelet Count 172 K/uL (130-400); RDW Coefficient of Variation 14.5 % (11.5-14.5); RDW Standard Deviation 46.6 fL (36.4-46.3); Red Blood Count 4.31 M/uL (4.20-5.40); White Blood Count 15.78 K/ul (4.8-10.8)
--- NOTE | 2022-10-26 08:05 | Surgery Progress Note ---
Date of Service October 26, 2022 Assessment & Plan (1) Abdominal pain: Plan: Patient here with abdominal pain/n/v/bloody diarrhea with concern for infectious vs ischemic colitis Labs this AM are pending. Vital signs are stable She denies further nausea/vomiting or recent bouts of bloody diarrhea Still dealing with bilateral lower abdominal pain worse with palpation and movement. Abdomen is soft and not firm Continue supportive care with IVF, bowel rest and course of abx (cipro/flagyl) until symptoms continue to improve Stool cultures ordered if she has a BM to follow up upon Will follow closely, no plans for surgical intervention at this time Admission and Anticipated Discharge Date Admission Date: October 25, 2022 Supervising Physician Co-Signing Physician Notes I personally saw and evaluated the patient with Hoda Wilson PA-C and agree with the assessment and plan. 77-year-old female with likely ischemic colitis, stable She continues to have some bilateral lower quadrant abdominal pain, slightly improved Her lactate did decrease to 3.9, but has not been repeated since then She has a stable leukocytosis of 15 Her tachycardia has improved and she has no signs of hypotension or peritoneal signs on exam We will continue conservative management with IV fluid resuscitation, Cipro/Flagyl, bowel rest We will continue to follow along Subjective Patient denies any further nausea/vomiting. No recent episodes of bloody diarrhea since either yesterday AM or the night before. Still having some lower abdominal pain that is made worse with movement. Physical Exam Physical Exam: awake/alert, no distress Respiratory: normal respiratory effort Gastrointestinal (Abdomen): Inspection/Auscultation: + abdomen distended (improving lower abdominal distention) Percussion/Palpation: + abdomen tender (tenderness to palpation in the bilateral lower abdomen) and abdomen soft Results & Data Vital Signs (Past 12 Hours) Vital Signs Temp Pulse Pulse Resp BP Pulse Ox O2 Del Method 10/26/22 07:35 36.7 C 74 16 110/65 97 Room Air 10/26/22 07:24 74 10/25/22 22:03 79 10/26/22 03:01 36.6 C 72 20 114/62 95 Room Air 10/25/22 23:19 36.8 C 70 18 129/69 98 Room Air PG Care Time/CCT Total # of Minutes Spent Total Time Spent with Patient: Total time spent is greater than 50% in coordination of care (as documented) at patient's floor/unit and/or counseling patient: Coding Level of Care Code 94715 SUB INP/OBS CARE 08/22MIN Diagnoses Abdominal pain R10.9
[2022-10-26 08:27] LABS: Albumin Globulin Ratio 1.5 (0.9-2); Albumin Level 3.2 gm/dl (3.4-5.0); BUN Creatinine Ratio 28.1 (10-20); Bilirubin,Total 0.6 mg/dl (0.2-1.0); Calcium 7.8 mg/dl (8.6-10.3); Creatinine Clr Calc Pharmacy 69.4 ml/min; Est GFR (African American) 102.2 ml/min; Est GFR (Non-African American) 88.2 ml/min; Globulin 2.1 gm/dl (2.5-4.0); Potassium 3.3 mmol/L (3.5-5.1); Total Protein 5.3 gm/dl (6.0-8.3)
[2022-10-26] MEDS: ATORVASTATIN 20 MG TAB PO SCH (09:40)
[2022-10-26] MEDS: POTASSIUM CHLORIDE CRTAB 20 MEQ TABCR PO SCH (09:44)
[2022-10-26] MEDS: FAMOTIDINE 20 MG in SYRINGE 3 ML IV SCH ×2 (09:44→22:19)
--- NOTE | 2022-10-26 10:15 | Hospitalist Progress Note ---
Date of Service October 26, 2022 Assessment & Plan (1) Abdominal pain: (2) Colitis: Plan: 77-year-old female with past medical history of multiple abdominal surgery, hypertension, Parkinson's disease presented to the hospital with abdominal pain and bloody diarrhea for [address] abdomen and pelvis on admission reviewed;: Fluid-filled consistent with diarrheal state, diverticulosis present Labs reviewed; continues to high WBC count; 15.78. Lactic acid down trended GI PCR panel pending Surgery and GI on board. Discussed with GI; recommend outpatient colonoscopy and supportive care. Discussed with surgery; recommend to continue supportive care. Clear liquid di et. will decrease her morphine to 1 mg every 3 hours as needed Continue scheduled Tylenol for the time being Decrease IV fluids to 75 mm/h (3) Acute blood loss anemia: Plan: Hemoglobin on admission 16.3; currently at 13.0. Monitor for bloody diarrhea. will transfuse if hemoglobin is less than 8 (4) Depression: Plan: Continue on home Cymbalta. (5) HTN (hypertension): Plan: Will hold lisinopril for now. Continue on metoprolol (6) Parkinson disease: Plan: Continue on carbidopa levodopa. (7) Hyperlipidemia: Plan: Continue Lipitor Plan Full code DVT SCDs Dispofrom home; lives with her . Continues to be hospitalized due to close monitoring for colitis with bloody diarrhea. Admission and Anticipated Discharge Date Admission Date: October 25, 2022 Subjective Patient seen and examined at bedside. She reports that her abdominal pain is slightly improved with IV Tylenol. She denies any further episode of bloody bowel movement. No episode of nausea or vomiting overnight. Afebrile overnight as well. Review of Systems Review of Systems: All systems reviewed & are unremarkable except as noted in Subjective Physical Exam Physical Exam: Constitutional: Alert orient x3; in mild distress due to pain Respiratory: normal respiratory effort, lungs clear to auscultation, no wheeze, rales, rhonchi. Normal insp/exp effort, no accessory muscle use Cardiovascular: RRR, no murmur, no edema Vessels: no JVD or carotid bruit Chest: normal inspection of chest Abdomen: Lower abdomen soft, tender on superficial palpation. Musculoskeletal: no cyanosis or clubbing, extremities motor strength 5/5 Skin: no rashes, warm and dry normal turgor Neurologic: Grossly intact Psychiatric: A+Ox3, euthymic affect Lymphatic: no cervical or axillary lymphadenopathy : deferred Results & Data Results & Data Vital Signs (Past 12 Hours) Vital Signs Temp Pulse Pulse Resp BP Pulse Ox O2 Del Method 10/26/22 07:35 36.7 C 74 16 110/65 97 Room Air 10/26/22 07:24 74 10/26/22 03:01 36.6 C 72 20 114/62 95 Room Air 10/25/22 23:19 36.8 C 70 18 129/69 98 Room Air Laboratory Results Laboratory Results WBC 15.78 K/ul (4.8-10.8) H 10/26/22 07:09 RBC 4.31 M/uL (4.20-5.40) 10/26/22 07:09 Hgb 13.0 g/dl (12.0-16.0) 10/26/22 07:09 Hct 37.4 % (37.0-47.0) 10/26/22 07:09 MCV 86.8 fL (80.0-100.0) 10/26/22 07:09 MCH 30.2 pg (25.0-34.0) 10/26/22 07:09 MCHC 34.8 g/dL (32.0-36.0) 10/26/22 07:09 RDW Std Deviation 46.6 fL (36.4-46.3) H 10/26/22 07:09 RDW Coeff of Fariba 14.5 % (11.5-14.5) 10/26/22 07:09 Plt Count 172 K/uL (130-400) 10/26/22 07:09 MPV 10.9 fL (9.4-12.4) 10/26/22 07:09 Immature Gran % (Auto) 0.7 % 10/26/22 07:09 Neut % (Auto) 82.5 % 10/26/22 07:09 Lymph % (Auto) 9.1 % 10/26/22 07:09 [place] % (Auto) 7.4 % 10/26/22 07:09 Eos % (Auto) 0.1 % 10/26/22 07:09 Baso % (Auto) 0.2 % 10/26/22 07:09 Neut # (Auto) 13.04 K/uL (1.40-6.50) H 10/26/22 07:09 Lymph # (Auto) 1.43 K/uL (1.2-3.4) 10/26/22 07:09 [place] # (Auto) 1.16 K/uL (0.11-0.59) H 10/26/22 07:09 Eos # (Auto) 0.01 K/uL (0-0.50) 10/26/22 07:09 Baso # (Auto) 0.03 K/uL (0-0.2) 10/26/22 07:09 Immature Gran # (Auto) 0.11 K/uL (0.01-0.20) 10/26/22 07:09 Sodium 140 mmol/L (136-145) 10/26/22 07:09 Potassium 3.3 mmol/L (3.5-5.1) L 10/26/22 07:09 Chloride 108 mmol/L (98-107) H 10/26/22 07:09 Carbon Dioxide 28 mmol/L (21-32) 10/26/22 07:09 Anion Gap 4 (3-11) 10/26/22 07:09 BUN 16 mg/dl (6-23) 10/26/22 07:09 Creatinine 0.57 mg/dl (0.6-1.2) L 10/26/22 07:09 Est Cr Clr Drug Dosing 69.4 ml/min 10/26/22 07:09 Est GFR ( Amer) 102.2 ml/min 10/26/22 07:09 Est GFR (Non-Af Amer) 88.2 ml/min 10/26/22 07:09 BUN/Creatinine Ratio 28.1 (10-20) H 10/26/22 07:09 Glucose 104 mg/dl (70-99(Fasting)) H 10/26/22 07:09 Lactate 3.9 mmol/L (0.4-2.0) H* 10/25/22 15:07 Calcium 7.8 mg/dl (8.6-10.3) L 10/26/22 07:09 Magnesium 1.8 mg/dl (1.7-2.4) 10/25/22 06:38 Total Bilirubin 0.6 mg/dl (0.2-1.0) 10/26/22 07:09 AST 20 U/L (13-39) 10/26/22 07:09 ALT 6 U/L (7-52) L 10/26/22 07:09 Alkaline Phosphatase 65 U/L (34-104) 10/26/22 07:09 Troponin I High Sens 12.8 pg/ml (0-14) D 10/25/22 06:38 Total Protein 5.3 gm/dl (6.0-8.3) L 10/26/22 07:09 Albumin 3.2 gm/dl (3.4-5.0) L 10/26/22 07:09 Globulin 2.1 gm/dl (2.5-4.0) L 10/26/22 07:09 Albumin/Globulin Ratio 1.5 (0.9-2) 10/26/22 07:09 Lipase 21 U/L (11-82) 10/25/22 01:14 Urine Color Yellow 10/25/22 01:57 Urine Appearance Clear (Clear) 10/25/22 01:57 Urine pH 6.0 (4.5-7.5) 10/25/22 01:57 Ur Specific [place] 1.019 (1.000-1.030) 10/25/22 01:57 Urine Protein Negative (Negative) 10/25/22 01:57 Urine Glucose (UA) Negative (Negative) 10/25/22 01:57 Urine Ketones Trace (Negative) H 10/25/22 01:57 Urine Blood Negative (Negative) 10/25/22 01:57 Urine Nitrite Negative (Negative) 10/25/22 01:57 Urine Bilirubin Negative (Negative) 10/25/22 01:57 Urine Urobilinogen Negative (Negative) 10/25/22 01:57 Ur Leukocyte Esterase Negative (Negative) 10/25/22 01:57 SARS-CoV-2, RNA, NAAT NEGATIVE (NEGATIVE) 10/25/22 01:53 Impressions Abdomen/Pelvis CT 10/25/22 01:09 Exam(s): CT ABDOMEN + PELVIS With Contrast IV Amt: 86 ML OPTIRAY 350 EXAM: CT Abdomen and Pelvis With Intravenous Contrast CLINICAL HISTORY: Abdominal pain. TECHNIQUE: Axial computed tomography images of the abdomen and pelvis with intravenous contrast. CTDI is 5.68 mGy and DLP is 256.34 mGy-cm. Automated exposure control was utilized for the study. A dose lowering technique was utilized adhering to the principles of ALARA. CONTRAST: Patient received 86 ML OPTIRAY 350 of IV contrast COMPARISON: No relevant prior studies available. FINDINGS: Lung bases: Unremarkable. No mass. No consolidation. ABDOMEN: Liver: Unremarkable. No mass. Gallbladder and bile ducts: Unremarkable. No calcified stones. No ductal dilation. Pancreas: Unremarkable. No mass. No ductal dilation. Spleen: Unremarkable. No splenomegaly. Adrenals: Unremarkable. No mass. Kidneys and ureters: Mild bilateral hydronephrosis. Nonobstructing punctate right renal calculus. No obstructing nephrolithiasis. Stomach and bowel: The colon is fluid-filled, this is consistent with diarrheal state. Diverticulosis. No obstruction. No mucosal thickening. PELVIS: Appendix: No findings to suggest acute appendicitis. Bladder: Unremarkable. No mass. Reproductive: Unremarkable as visualized. ABDOMEN and PELVIS: Intraperitoneal space: Unremarkable. No free air. No significant fluid collection. Bones/joints: There are degenerative changes of the spine. No fracture. No dislocation. Soft tissues: Unremarkable. Vasculature: Mild atherosclerosis. No abdominal aortic aneurysm. Lymph nodes: Unremarkable. No enlarged lymph nodes. IMPRESSION: 1. Mild bilateral hydronephrosis. 2. The colon is fluid-filled, this is consistent with diarrheal state. 3. Nonobstructing punctate right renal calculus. No obstructing nephrolithiasis. 4. Diverticulosis. Electronically signed by: Lay Perea MD 10/25/22 03:37 AM
[2022-10-26] MEDS: MoRPHine SULFATE 4 MG/ML 1 ML CARP\\VIAL IV PRN ×3 (10:25→22:18)
[2022-10-26] MEDS: CIPROFLOXACIN / D5W 400 MG/200 ML BAG IV SCH ×2 (11:09→22:20)
--- NOTE | 2022-10-26 14:25 | Gastroenterology Progress Note ---
Date of Service October 26, 2022 Assessment & Plan (1) Abdominal pain: Plan: Though not specifically seen on CT, her symptoms/presentation are most consistent with ischemic colitis. (2) Leukocytosis: Plan: Likely secondary to ischemic colitis vs. infectious enteritis. Plan 1. Stool studies. 2. Continue IV Cipro/Flagyl. 3. Clear liquids po. If continues to improve, full liquids tomorrow. 4. Daily CBC, CMP. 5. OP Colonoscopy in approx 2m. 6. GI will sign off. Please notify if new/worsening symptoms. Admission and Anticipated Discharge Date Admission Date: October 25, 2022 Supervising Physician Co-Signing Physician Notes I performed a history and physical examination of the patient today, including specifically on physical exam - soft abdomen. I have discussed the patient's management with the advanced practitioner. Please refer to the nurse practitioner's note for the documented findings and plan of care. Continues to improve. Continue ABx. Advance diet. OP colonoscopy. Recall GI if needed. Subjective Patient seen and examined at bedside. She reports that her abdominal pain is slightly improved today compared to yesterday. No GI Bleeding, N/V today. Able to walk to the BR for toileting and self care today. WBC 15, higher than most recent but lower than on arrival (18). Afebrile overnight as well. Pt tells me she has an extensive abd surgery hx, having undergone an extensive surgery for perf diverticulitis in the . Review of Systems Review of Systems: ROS: Gen: prior to admission had + chills; no measurable fever. Eyes: No eye redness, or pain, no recent vision changes Resp: No SOB, no cough Cardio: No CP, nno palpitations/irregular beats. GI: As per HPI, otherwise (-). : Denies pain on urination Skin: No jaundice, itching or new rashes Physical Exam Constitutional: well developed, well nourished, well groomed, cooperative and + in distress Eyes: PERRL, conjunctivae normal, anicteric sclerae ENMT: external ear and nose normal, oropharynx normal Neck: trachea midline, no thyromegaly Respiratory: normal respiratory effort, lungs clear to auscultation Cardiovascular: RRR, no murmur, no edema Gastrointestinal (Abdomen): mild, diffuse tenderness, more in the LLQ, suprapubic than elsewhere. Skin: no rashes, warm and dry (sl pale) Neurologic: PERRL, EOMI, accommodation nl, no face palsy, no dysarthria Psychiatric: A+Ox3, euthymic affect Lymphatic: no cervical or axillary lymphadenopathy Results & Data Vital Signs (Past 12 Hours) Vital Signs Temp Pulse Pulse Resp BP Pulse Ox O2 Del Method 10/26/22 12:15 36.8 C 71 18 146/68 H 97 Room Air 10/26/22 07:35 36.7 C 74 16 110/65 97 Room Air 10/26/22 07:24 74 10/26/22 03:01 36.6 C 72 20 114/62 95 Room Air Laboratory Results WBC 15, Hb 13, Hct 37, Plts 172, Na140, K 4.1, Cl 110, CO2 20, BUN 21, Cr 0.78, gluocse 97. Diagnostic Findings CTAP w IV yesterday: 1. Mild bilateral hydronephrosis. 2. The colon is fluid-filled, this is consistent with diarrheal state. 3. Nonobstructing punctate right renal calculus. No obstructing nephrolithiasis. 4. Diverticulosis.
[2022-10-26] MEDS: nitrofurantoin macrocrystaL 50 MG CAP PO SCH (20:24)
[2022-10-26] MEDS: METOPROLOL SUCC 25MG EXT REL TAB PO SCH (20:24)
[2022-10-26] MEDS: NORTRIPTYLINE HCL 10 MG CAP PO SCH (20:24)
[2022-10-26] MEDS: DULoxetine HCL 30 MG CAP PO SCH (20:24)
[2022-10-27] MEDS: ACETAMINOPHEN 1,000 MG/100 ML VIAL IV SCH ×3 (00:48→16:37)
[2022-10-27] MEDS: ONDANSETRON INJ 2 MG/ML 2 ML VIAL IV PRN (01:11)
[2022-10-27] MEDS: metroNIDAZOLE 500 MG/100 ML BAG IV SCH ×3 (03:34→18:24)
[2022-10-27] MEDS: MoRPHine SULFATE 4 MG/ML 1 ML CARP\\VIAL IV PRN ×4 (03:43→23:04)
[2022-10-27] MEDS: CARBIDOPA/LEVODOPA 25/100MG TAB PO SCH ×5 (06:10→23:07)
[2022-10-27 08:05] LABS: Basophils # (auto) 0.03 K/uL (0-0.2); Basophils % (auto) 0.2 %; Eosinophils # (auto) 0.08 K/uL (0-0.50); Eosinophils % (auto) 0.6 %; Hematocrit (blood only) 38.9 % (37.0-47.0); Hemoglobin 13.2 g/dl (12.0-16.0); Immature Granulocytes # (auto) 0.08 K/uL (0.01-0.20); Immature Granulocytes % (auto) 0.6 %; Lymphocytes # (auto) 1.31 K/uL (1.2-3.4); Lymphocytes % (auto) 9.8 %; Mean Corpuscular Hemoglobin 30.2 pg (25.0-34.0); Mean Corpuscular Hgb Conc 33.9 g/dL (32.0-36.0); Mean Platelet Volume 10.8 fL (9.4-12.4); Monocytes # (auto) 1.01 K/uL (0.11-0.59); Monocytes % (auto) 7.5 %; Neutrophils # (auto) 10.89 K/uL (1.40-6.50); Neutrophils % (auto) 81.3 %; Platelet Count 159 K/uL (130-400); RDW Coefficient of Variation 14.3 % (11.5-14.5); RDW Standard Deviation 46.4 fL (36.4-46.3); Red Blood Count 4.37 M/uL (4.20-5.40)
[2022-10-27 08:18] LABS: Albumin Globulin Ratio 1.4 (0.9-2); Bilirubin,Total 0.6 mg/dl (0.2-1.0); Calcium 7.5 mg/dl (8.6-10.3); Creatinine Clr Calc Pharmacy 72.2 ml/min; Est GFR (African American) 106.7 ml/min; Est GFR (Non-African American) 92.1 ml/min; Globulin 2.2 gm/dl (2.5-4.0); Potassium 3.3 mmol/L (3.5-5.1); Total Protein 5.2 gm/dl (6.0-8.3)
[2022-10-27] MEDS ORDERED: MAGNESIUM HYDROXIDE SUSP 30 ML UDC PO ONE (08:38)
[2022-10-27] MEDS: ATORVASTATIN 20 MG TAB PO SCH (08:49)
[2022-10-27] MEDS: POTASSIUM CHLORIDE CRTAB 20 MEQ TABCR PO SCH (08:55)
--- NOTE | 2022-10-27 08:57 | Surgery Progress Note ---
Date of Service October 27, 2022 Assessment & Plan (1) Colitis: Plan: Ischemic versus infectious. She is currently on full liquids which she is tolerating although poor appetite. Continue IV antibiotics. Lactic acid back to normal and white blood cell count decreasing. Vital stable. No urgent indication for operative intervention. We will continue to follow along closely. Admission and Anticipated Discharge Date Admission Date: October 25, 2022 Subjective Patient seen. Continues to have abdominal pain slightly worse on the left side. No bowel movement since she came in. She does state that the pain is slightly improved from when she came in. Physical Exam Physical Exam: Alert. No acute distress Abdomen is soft. Positive diffuse tenderness worse on the left side. No peritonitis Results & Data Vital Signs (Past 12 Hours) Vital Signs Temp Pulse Pulse Pulse Resp BP BP 10/27/22 08:17 36.7 C 73 15 112/86 10/27/22 07:51 36.9 C 84 18 99/64 L 10/27/22 04:05 36.8 C 77 18 104/58 L 10/26/22 22:02 78 10/26/22 23:00 36.8 C 80 20 155/82 H Pulse Ox O2 Del Method 10/27/22 08:17 95 Room Air 10/27/22 07:51 93 Room Air 10/27/22 04:05 94 Room Air 10/26/22 22:02 10/26/22 23:00 96 Room Air PG Care Time/CCT Total # of Minutes Spent Total Time Spent with Patient: Total time spent is greater than 50% in coordination of care (as documented) at patient's floor/unit and/or counseling patient: Coding Level of Care Code 83370 SUB INP/OBS CARE 2/35MIN Diagnoses Colitis K52.9
[2022-10-27] MEDS: FAMOTIDINE 20 MG in SYRINGE 3 ML IV SCH ×2 (10:06→21:42)
[2022-10-27] MEDS: D5W AND LACTATED RINGERS 1,000 ML IV SCH (10:11)
--- NOTE | 2022-10-27 10:47 | Hospitalist Progress Note ---
Date of Service October 27, 2022 Assessment & Plan (1) Abdominal pain: (2) Lactic acidosis: (3) Colitis: Plan: 77-year-old female with past medical history of multiple abdominal surgery, hypertension, Parkinson's disease presented to the hospital with abdominal pain and bloody diarrhea for [address] abdomen and pelvis on admission reviewed;: Fluid-filled consistent with diarrheal state, diverticulosis present Labs personally reviewed today; WBC slightly improving to 13.4. Normal anion gap. Lactic acid down trended. GI PCR panel pending Surgery and GI on board. Discussed with GI; recommend outpatient colonoscopy and supportive care. Discussed with surgery; recommend to continue supportive care. Clear liquid diet; will advance as tolerated. Continue on morphine 1 mg as needed for pain control Continue scheduled Tylenol for the time being Continue IV fluids with LR for now. (4) Acute blood loss anemia: Plan: Hemoglobin on admission 16.3; currently at 13.2. Monitor for bloody diarrhea. will transfuse if hemoglobin is less than 8 (5) Depression: Plan: Continue on home Cymbalta. (6) HTN (hypertension): Plan: Will hold lisinopril for now. Continue on metoprolol (7) Parkinson disease: Plan: Continue on carbidopa levodopa. (8) Hyperlipidemia: Plan: Continue Lipitor Plan Full code DVT SCDs Dispofrom home; lives with her . Continues to be hospitalized due to close monitoring for colitis with bloody diarrhea. Admission and Anticipated Discharge Date Admission Date: October 25, 2022 Subjective Patient seen and examined at bedside. She reports that her abdominal pain is slightly better but increases in intensity on movement. She has not had any bowel movement since admission. No episode of nausea or vomiting. She has been afebrile as well. Review of Systems Review of Systems: All systems reviewed & are unremarkable except as noted in Subjective Physical Exam Physical Exam: Constitutional: Alert orient x3; in mild distress due to pain Respiratory: normal respiratory effort, lungs clear to auscultation, no wheeze, rales, rhonchi. Normal insp/exp effort, no accessory muscle use Cardiovascular: RRR, no murmur, no edema Vessels: no JVD or carotid bruit Chest: normal inspection of chest Abdomen: Lower abdomen soft, tender on superficial palpation. Musculoskeletal: no cyanosis or clubbing, extremities motor strength 5/5 Skin: no rashes, warm and dry normal turgor Neurologic: Grossly intact Psychiatric: A+Ox3, euthymic affect Lymphatic: no cervical or axillary lymphadenopathy : deferred Results & Data Results & Data Vital Signs (Past 12 Hours) Vital Signs Temp Pulse Pulse Resp BP BP Pulse Ox 10/27/22 09:12 10/27/22 08:17 36.7 C 73 15 112/86 95 10/27/22 07:51 36.9 C 84 18 99/64 L 93 10/27/22 04:05 36.8 C 77 18 104/58 L 94 10/26/22 23:00 36.8 C 80 20 155/82 H 96 O2 Del Method 10/27/22 09:12 Room Air 10/27/22 08:17 Room Air 10/27/22 07:51 Room Air 10/27/22 04:05 Room Air 10/26/22 23:00 Room Air Laboratory Results Laboratory Results WBC 13.40 K/ul (4.8-10.8) H 10/27/22 06:59 RBC 4.37 M/uL (4.20-5.40) 10/27/22 06:59 Hgb 13.2 g/dl (12.0-16.0) 10/27/22 06:59 Hct 38.9 % (37.0-47.0) 10/27/22 06:59 MCV 89.0 fL (80.0-100.0) 10/27/22 06:59 MCH 30.2 pg (25.0-34.0) 10/27/22 06:59 MCHC 33.9 g/dL (32.0-36.0) 10/27/22 06:59 RDW Std Deviation 46.4 fL (36.4-46.3) H 10/27/22 06:59 RDW Coeff of Fariba 14.3 % (11.5-14.5) 10/27/22 06:59 Plt Count 159 K/uL (130-400) 10/27/22 06:59 MPV 10.8 fL (9.4-12.4) 10/27/22 06:59 Immature Gran % (Auto) 0.6 % 10/27/22 06:59 Neut % (Auto) 81.3 % 10/27/22 06:59 Lymph % (Auto) 9.8 % 10/27/22 06:59 [place] % (Auto) 7.5 % 10/27/22 06:59 Eos % (Auto) 0.6 % 10/27/22 06:59 Baso % (Auto) 0.2 % 10/27/22 06:59 Neut # (Auto) 10.89 K/uL (1.40-6.50) H 10/27/22 06:59 Lymph # (Auto) 1.31 K/uL (1.2-3.4) 10/27/22 06:59 [place] # (Auto) 1.01 K/uL (0.11-0.59) H 10/27/22 06:59 Eos # (Auto) 0.08 K/uL (0-0.50) 10/27/22 06:59 Baso # (Auto) 0.03 K/uL (0-0.2) 10/27/22 06:59 Immature Gran # (Auto) 0.08 K/uL (0.01-0.20) 10/27/22 06:59 Sodium 140 mmol/L (136-145) 10/27/22 06:59 Potassium 3.3 mmol/L (3.5-5.1) L 10/27/22 06:59 Chloride 109 mmol/L (98-107) H 10/27/22 06:59 Carbon Dioxide 27 mmol/L (21-32) 10/27/22 06:59 Anion Gap 4 (3-11) 10/27/22 06:59 BUN 9 mg/dl (6-23) 10/27/22 06:59 Creatinine 0.50 mg/dl (0.6-1.2) L 10/27/22 06:59 Est Cr Clr Drug Dosing 72.2 ml/min 10/27/22 06:59 Est GFR ( Amer) 106.7 ml/min 10/27/22 06:59 Est GFR (Non-Af Amer) 92.1 ml/min 10/27/22 06:59 BUN/Creatinine Ratio 18.0 (10-20) 10/27/22 06:59 Glucose 102 mg/dl (70-99(Fasting)) H 10/27/22 06:59 POC Glucose 96 mg/dl (70-99) 10/27/22 00:58 Lactate 1.9 mmol/L (0.4-2.0) 10/26/22 11:02 Calcium 7.5 mg/dl (8.6-10.3) L 10/27/22 06:59 Magnesium 1.8 mg/dl (1.7-2.4) 10/25/22 06:38 Total Bilirubin 0.6 mg/dl (0.2-1.0) 10/27/22 06:59 AST 17 U/L (13-39) 10/27/22 06:59 ALT 3 U/L (7-52) L 10/27/22 06:59 Alkaline Phosphatase 66 U/L (34-104) 10/27/22 06:59 Troponin I High Sens 12.8 pg/ml (0-14) D 10/25/22 06:38 Total Protein 5.2 gm/dl (6.0-8.3) L 10/27/22 06:59 Albumin 3.0 gm/dl (3.4-5.0) L 10/27/22 06:59 Globulin 2.2 gm/dl (2.5-4.0) L 10/27/22 06:59 Albumin/Globulin Ratio 1.4 (0.9-2) 10/27/22 06:59 Lipase 21 U/L (11-82) 10/25/22 01:14 Urine Color Yellow 10/25/22 01:57 Urine Appearance Clear (Clear) 10/25/22 01:57 Urine pH 6.0 (4.5-7.5) 10/25/22 01:57 Ur Specific [place] 1.019 (1.000-1.030) 10/25/22 01:57 Urine Protein Negative (Negative) 10/25/22 01:57 Urine Glucose (UA) Negative (Negative) 10/25/22 01:57 Urine Ketones Trace (Negative) H 10/25/22 01:57 Urine Blood Negative (Negative) 10/25/22 01:57 Urine Nitrite Negative (Negative) 10/25/22 01:57 Urine Bilirubin Negative (Negative) 10/25/22 01:57 Urine Urobilinogen Negative (Negative) 10/25/22 01:57 Ur Leukocyte Esterase Negative (Negative) 10/25/22 01:57 SARS-CoV-2, RNA, NAAT NEGATIVE (NEGATIVE) 03/30/23 01:53 Impressions Abdomen/Pelvis CT 10/25/22 01:09 Exam(s): CT ABDOMEN + PELVIS With Contrast IV Amt: 86 ML OPTIRAY 350 EXAM: CT Abdomen and Pelvis With Intravenous Contrast CLINICAL HISTORY: Abdominal pain. TECHNIQUE: Axial computed tomography images of the abdomen and pelvis with intravenous contrast. CTDI is 5.68 mGy and DLP is 256.34 mGy-cm. Automated exposure control was utilized for the study. A dose lowering technique was utilized adhering to the principles of ALARA. CONTRAST: Patient received 86 ML OPTIRAY 350 of IV contrast COMPARISON: No relevant prior studies available. FINDINGS: Lung bases: Unremarkable. No mass. No consolidation. ABDOMEN: Liver: Unremarkable. No mass. Gallbladder and bile ducts: Unremarkable. No calcified stones. No ductal dilation. Pancreas: Unremarkable. No mass. No ductal dilation. Spleen: Unremarkable. No splenomegaly. Adrenals: Unremarkable. No mass. Kidneys and ureters: Mild bilateral hydronephrosis. Nonobstructing punctate right renal calculus. No obstructing nephrolithiasis. Stomach and bowel: The colon is fluid-filled, this is consistent with diarrheal state. Diverticulosis. No obstruction. No mucosal thickening. PELVIS: Appendix: No findings to suggest acute appendicitis. Bladder: Unremarkable. No mass. Reproductive: Unremarkable as visualized. ABDOMEN and PELVIS: Intraperitoneal space: Unremarkable. No free air. No significant fluid collection. Bones/joints: There are degenerative changes of the spine. No fracture. No dislocation. Soft tissues: Unremarkable. Vasculature: Mild atherosclerosis. No abdominal aortic aneurysm. Lymph nodes: Unremarkable. No enlarged lymph nodes. IMPRESSION: 1. Mild bilateral hydronephrosis. 2. The colon is fluid-filled, this is consistent with diarrheal state. 3. Nonobstructing punctate right renal calculus. No obstructing nephrolithiasis. 4. Diverticulosis. Electronically signed by: Lay Perea MD 10/25/22 03:37 AM
[2022-10-27] MEDS: CIPROFLOXACIN / D5W 400 MG/200 ML BAG IV SCH ×2 (12:11→23:07)
[2022-10-27] MEDS: METOPROLOL SUCC 25MG EXT REL TAB PO SCH ×2 (20:40→21:45)
[2022-10-27] MEDS: nitrofurantoin macrocrystaL 50 MG CAP PO SCH ×2 (20:40→21:44)
[2022-10-27] MEDS: DULoxetine HCL 30 MG CAP PO SCH ×2 (20:41→21:44)
[2022-10-27] MEDS: NORTRIPTYLINE HCL 10 MG CAP PO SCH (21:44)
[2022-10-28] MEDS: ACETAMINOPHEN 1,000 MG/100 ML VIAL IV SCH ×2 (01:20→10:05)
[2022-10-28] MEDS: metroNIDAZOLE 500 MG/100 ML BAG IV SCH ×3 (04:05→18:25)
[2022-10-28] MEDS: D5W AND LACTATED RINGERS 1,000 ML IV SCH (05:33)
[2022-10-28] MEDS: CARBIDOPA/LEVODOPA 25/100MG TAB PO SCH ×5 (06:00→23:26)
[2022-10-28] MEDS: MoRPHine SULFATE 4 MG/ML 1 ML CARP\\VIAL IV PRN ×3 (06:06→19:59)
[2022-10-28 07:35] LABS: Albumin Globulin Ratio 1.4 (0.9-2); BUN Creatinine Ratio 14.8 (10-20); Bilirubin,Total 0.5 mg/dl (0.2-1.0); Calcium 7.5 mg/dl (8.6-10.3); Creatinine Clr Calc Pharmacy 66.8 ml/min; Est GFR (Non-African American) 89.8 ml/min; Globulin 2.1 gm/dl (2.5-4.0); Potassium 3.3 mmol/L (3.5-5.1); Total Protein 5.1 gm/dl (6.0-8.3)
[2022-10-28 07:40] LABS: Basophils # (auto) 0.03 K/uL (0-0.2); Basophils % (auto) 0.3 %; Eosinophils # (auto) 0.22 K/uL (0-0.50); Eosinophils % (auto) 2.3 %; Hematocrit (blood only) 36.2 % (37.0-47.0); Hemoglobin 12.4 g/dl (12.0-16.0); Immature Granulocytes # (auto) 0.03 K/uL (0.01-0.20); Immature Granulocytes % (auto) 0.3 %; Lymphocytes # (auto) 1.36 K/uL (1.2-3.4); Lymphocytes % (auto) 14.2 %; Mean Corpuscular Hgb Conc 34.3 g/dL (32.0-36.0); Mean Corpuscular Volume 87.4 fL (80.0-100.0); Mean Platelet Volume 10.8 fL (9.4-12.4); Monocytes % (auto) 7.3 %; Neutrophils # (auto) 7.22 K/uL (1.40-6.50); Neutrophils % (auto) 75.6 %; Platelet Count 159 K/uL (130-400); RDW Coefficient of Variation 14.3 % (11.5-14.5); RDW Standard Deviation 46.1 fL (36.4-46.3); Red Blood Count 4.14 M/uL (4.20-5.40); White Blood Count 9.56 K/ul (4.8-10.8)
--- NOTE | 2022-10-28 09:16 | Surgery Progress Note ---
Date of Service October 28, 2022 Assessment & Plan (1) Colitis: Plan: Slowly improving. White blood cell count now normal. Vital stable. Clinically slowly improving. I would continue to keep her n.p.o. for now and continue current treatment. Admission and Anticipated Discharge Date Admission Date: October 25, 2022 Subjective Patient seen. Continues to have left-sided abdominal pain although admittedly this seems to be improving. She has no new complaints. She states that this episode does not seem quite as bad as episodes she has had in the past. Physical Exam Constitutional: WD/WN, vitals as above no acute distress and not ill appearing Eyes: PERRL, conjunctivae normal, anicteric sclerae EOM intact bilaterally ENMT: external ear and nose normal, oropharynx normal Ears: no hearing impairment Neck: trachea midline, no thyromegaly Respiratory: normal respiratory effort; no respiratory distress and does not use accessory muscles Cardiovascular: Rate/Rhythm: regular rate and regular rhythm Gastrointestinal (Abdomen): Soft. Positive left-sided tenderness to palpation. No peritonitis. Skin: no rashes, warm and dry Psychiatric: Orientation: alert, oriented x 3 and cooperative Results & Data Vital Signs (Past 12 Hours) Vital Signs Temp Pulse Pulse Resp BP BP Pulse Ox 10/28/22 08:58 10/28/22 07:54 36.7 C 70 16 120/73 95 10/28/22 06:40 66 10/28/22 05:00 81 10/28/22 03:47 36.8 C 75 18 124/67 96 10/27/22 23:39 37.5 C 78 18 154/82 H 97 O2 Del Method 10/28/22 08:58 Room Air 10/28/22 07:54 Room Air 10/28/22 06:40 10/28/22 05:00 10/28/22 03:47 Room Air 10/27/22 23:39 Room Air PG Care Time/CCT Total # of Minutes Spent Total Time Spent with Patient: Total time spent is greater than 50% in coordination of care (as documented) at patient's floor/unit and/or counseling patient: Coding Level of Care Code 42939 SUB INP/OBS CARE 2/35MIN Diagnoses Colitis K52.9
[2022-10-28] MEDS: FAMOTIDINE 20 MG in SYRINGE 3 ML IV SCH ×2 (10:06→19:42)
[2022-10-28] MEDS: ATORVASTATIN 20 MG TAB PO SCH (10:06)
[2022-10-28] MEDS: POTASSIUM CHLORIDE CRTAB 20 MEQ TABCR PO SCH (10:06)
[2022-10-28] MEDS: CIPROFLOXACIN / D5W 400 MG/200 ML BAG IV SCH ×2 (11:23→23:26)
--- NOTE | 2022-10-28 12:05 | Hospitalist Progress Note ---
Date of Service October 28, 2022 Assessment & Plan (1) Abdominal pain: (2) Lactic acidosis: (3) Colitis: Plan: 77-year-old female with past medical history of multiple abdominal surgery, hypertension, Parkinson's disease presented to the hospital with abdominal pain and bloody diarrhea for [address] abdomen and pelvis on admission reviewed;: Fluid-filled consistent with diarrheal state, diverticulosis present Labs personally reviewed today; WBC improved and normalized Normal anion gap. Lactic acid down trended. GI PCR panel pending Surgery and GI on board. Discussed with GI; recommend outpatient colonoscopy and supportive care. Discussed with surgery; recommend to continue supportive care. Continue on ciprofloxacin and metronidazole day 4 Continue on morphine 1 mg as needed for pain control Continue scheduled Tylenol for the time being Continue IV fluids with LR for now. (4) Acute blood loss anemia: Plan: Hemoglobin on admission 16.3; Hemoglobin reviewed today; 12.4 today Monitor for bloody diarrhea. will transfuse if hemoglobin is less than 8 (5) Depression: Plan: Continue on home Cymbalta. (6) HTN (hypertension): Plan: Will hold lisinopril for now. Continue on metoprolol (7) Parkinson disease: Plan: Continue on carbidopa levodopa. (8) Hyperlipidemia: Plan: Continue Lipitor Plan Full code DVT SCDs Dispofrom home; lives with her . Continues to be hospitalized due to close monitoring for colitis with bloody diarrhea. PT OT evaluation done; recommend home after resolution of medical issues. Admission and Anticipated Discharge Date Admission Date: October 25, 2022 Subjective Patient seen and examined at bedside. She is lying in the bed comfortably. She reports that her abdominal pain has improved compared to previous days. She denies any bowel movement since admission. Review of Systems Review of Systems: All systems reviewed & are unremarkable except as noted in Subjective Physical Exam Physical Exam: Constitutional: Alert orient x3; in mild distress due to pain Respiratory: normal respiratory effort, lungs clear to auscultation, no wheeze, rales, rhonchi. Normal insp/exp effort, no accessory muscle use Cardiovascular: RRR, no murmur, no edema Vessels: no JVD or carotid bruit Chest: normal inspection of chest Abdomen: Lower abdomen soft, tender on superficial palpation. Slightly bloated Musculoskeletal: no cyanosis or clubbing, extremities motor strength 5/5 Skin: no rashes, warm and dry normal turgor Neurologic: Grossly intact Psychiatric: A+Ox3, euthymic affect Lymphatic: no cervical or axillary lymphadenopathy : deferred Results & Data Results & Data Vital Signs (Past 12 Hours) Vital Signs Temp Pulse Pulse Resp BP BP Pulse Ox 10/28/22 11:31 36.8 C 73 16 112/69 96 10/28/22 08:58 10/28/22 07:54 36.7 C 70 16 120/73 95 10/28/22 06:40 66 10/28/22 05:00 81 10/28/22 03:47 36.8 C 75 18 124/67 96 O2 Del Method 10/28/22 11:31 Room Air 10/28/22 08:58 Room Air 10/28/22 07:54 Room Air 10/28/22 06:40 10/28/22 05:00 10/28/22 03:47 Room Air Laboratory Results Laboratory Results WBC 9.56 K/ul (4.8-10.8) 10/28/22 06:46 RBC 4.14 M/uL (4.20-5.40) L 10/28/22 06:46 Hgb 12.4 g/dl (12.0-16.0) 10/28/22 06:46 Hct 36.2 % (37.0-47.0) L 10/28/22 06:46 MCV 87.4 fL (80.0-100.0) 10/28/22 06:46 MCH 30.0 pg (25.0-34.0) 10/28/22 06:46 MCHC 34.3 g/dL (32.0-36.0) 10/28/22 06:46 RDW Std Deviation 46.1 fL (36.4-46.3) 10/28/22 06:46 RDW Coeff of Fariba 14.3 % (11.5-14.5) 10/28/22 06:46 Plt Count 159 K/uL (130-400) 10/28/22 06:46 MPV 10.8 fL (9.4-12.4) 10/28/22 06:46 Immature Gran % (Auto) 0.3 % 10/28/22 06:46 Neut % (Auto) 75.6 % 10/28/22 06:46 Lymph % (Auto) 14.2 % 10/28/22 06:46 Stokes % (Auto) 7.3 % 10/28/22 06:46 Eos % (Auto) 2.3 % 10/28/22 06:46 Baso % (Auto) 0.3 % 10/28/22 06:46 Neut # (Auto) 7.22 K/uL (1.40-6.50) H 10/28/22 06:46 Lymph # (Auto) 1.36 K/uL (1.2-3.4) 10/28/22 06:46 Stokes # (Auto) 0.70 K/uL (0.11-0.59) H 10/28/22 06:46 Eos # (Auto) 0.22 K/uL (0-0.50) 10/28/22 06:46 Baso # (Auto) 0.03 K/uL (0-0.2) 10/28/22 06:46 Immature Gran # (Auto) 0.03 K/uL (0.01-0.20) 10/28/22 06:46 Sodium 139 mmol/L (136-145) 10/28/22 06:46 Potassium 3.3 mmol/L (3.5-5.1) L 10/28/22 06:46 Chloride 107 mmol/L (98-107) 10/28/22 06:46 Carbon Dioxide 28 mmol/L (21-32) 10/28/22 06:46 Anion Gap 4 (3-11) 10/28/22 06:46 BUN 8 mg/dl (6-23) 10/28/22 06:46 Creatinine 0.54 mg/dl (0.6-1.2) L 10/28/22 06:46 Est Cr Clr Drug Dosing 66.8 ml/min 10/28/22 06:46 Est GFR ( Amer) 104.0 ml/min 10/28/22 06:46 Est GFR (Non-Af Amer) 89.8 ml/min 10/28/22 06:46 BUN/Creatinine Ratio 14.8 (10-20) 10/28/22 06:46 Glucose 103 mg/dl (70-99(Fasting)) H 10/28/22 06:46 POC Glucose 96 mg/dl (70-99) 10/27/22 00:58 Lactate 1.9 mmol/L (0.4-2.0) 10/26/22 11:02 Calcium 7.5 mg/dl (8.6-10.3) L 10/28/22 06:46 Magnesium 1.8 mg/dl (1.7-2.4) 10/25/22 06:38 Total Bilirubin 0.5 mg/dl (0.2-1.0) 10/28/22 06:46 AST 15 U/L (13-39) 10/28/22 06:46 ALT 3 U/L (7-52) L 10/28/22 06:46 Alkaline Phosphatase 63 U/L (34-104) 10/28/22 06:46 Troponin I High Sens 12.8 pg/ml (0-14) D 10/25/22 06:38 Total Protein 5.1 gm/dl (6.0-8.3) L 10/28/22 06:46 Albumin 3.0 gm/dl (3.4-5.0) L 10/28/22 06:46 Globulin 2.1 gm/dl (2.5-4.0) L 10/28/22 06:46 Albumin/Globulin Ratio 1.4 (0.9-2) 10/28/22 06:46 Lipase 21 U/L (11-82) 10/25/22 01:14 Urine Color Yellow 10/25/22 01:57 Urine Appearance Clear (Clear) 10/25/22 01:57 Urine pH 6.0 (4.5-7.5) 10/25/22 01:57 Ur Specific [place] 1.019 (1.000-1.030) 10/25/22 01:57 Urine Protein Negative (Negative) 10/25/22 01:57 Urine Glucose (UA) Negative (Negative) 10/25/22 01:57 Urine Ketones Trace (Negative) H 10/25/22 01:57 Urine Blood Negative (Negative) 10/25/22 01:57 Urine Nitrite Negative (Negative) 10/25/22 01:57 Urine Bilirubin Negative (Negative) 10/25/22 01:57 Urine Urobilinogen Negative (Negative) 10/25/22 01:57 Ur Leukocyte Esterase Negative (Negative) 10/25/22 01:57 SARS-CoV-2, RNA, NAAT NEGATIVE (NEGATIVE) 10/25/22 01:53 Impressions Abdomen/Pelvis CT 10/25/22 01:09 Exam(s): CT ABDOMEN + PELVIS With Contrast IV Amt: 86 ML OPTIRAY 350 EXAM: CT Abdomen and Pelvis With Intravenous Contrast CLINICAL HISTORY: Abdominal pain. TECHNIQUE: Axial computed tomography images of the abdomen and pelvis with intravenous contrast. CTDI is 5.68 mGy and DLP is 256.34 mGy-cm. Automated exposure control was utilized for the study. A dose lowering technique was utilized adhering to the principles of ALARA. CONTRAST: Patient received 86 ML OPTIRAY 350 of IV contrast COMPARISON: No relevant prior studies available. FINDINGS: Lung bases: Unremarkable. No mass. No consolidation. ABDOMEN: Liver: Unremarkable. No mass. Gallbladder and bile ducts: Unremarkable. No calcified stones. No ductal dilation. Pancreas: Unremarkable. No mass. No ductal dilation. Spleen: Unremarkable. No splenomegaly. Adrenals: Unremarkable. No mass. Kidneys and ureters: Mild bilateral hydronephrosis. Nonobstructing punctate right renal calculus. No obstructing nephrolithiasis. Stomach and bowel: The colon is fluid-filled, this is consistent with diarrheal state. Diverticulosis. No obstruction. No mucosal thickening. PELVIS: Appendix: No findings to suggest acute appendicitis. Bladder: Unremarkable. No mass. Reproductive: Unremarkable as visualized. ABDOMEN and PELVIS: Intraperitoneal space: Unremarkable. No free air. No significant fluid collection. Bones/joints: There are degenerative changes of the spine. No fracture. No dislocation. Soft tissues: Unremarkable. Vasculature: Mild atherosclerosis. No abdominal aortic aneurysm. Lymph nodes: Unremarkable. No enlarged lymph nodes. IMPRESSION: 1. Mild bilateral hydronephrosis. 2. The colon is fluid-filled, this is consistent with diarrheal state. 3. Nonobstructing punctate right renal calculus. No obstructing nephrolithiasis. 4. Diverticulosis. Electronically signed by: Lay Perea MD 10/25/22 03:37 AM
--- NOTE | 2022-10-28 13:28 | XRay Report ---
XR KUB/Abdomen 1 view CLINICAL HISTORY: Abdominal distension TECHNIQUE: 1 view of the abdomen was obtained. Comparison: Comparison is made to CT abdomen pelvis 10/15/2022 FINDINGS: Lung bases are unremarkable. Degenerative changes are seen in the visualized skeleton. The bowel gas pattern is nonobstructive. Small stool burden is seen. Gastric distention is seen in the colon. IMPRESSION: No radiographic evidence of small bowel obstruction. ACT 112: Negative or not required by law. Electronically signed by: Stef Jenkins M.D. 10/28/2022 1:25 PM
[2022-10-28] MEDS: DULoxetine HCL 30 MG CAP PO SCH (19:48)
[2022-10-28] MEDS: METOPROLOL SUCC 25MG EXT REL TAB PO SCH (19:49)
[2022-10-28] MEDS: nitrofurantoin macrocrystaL 50 MG CAP PO SCH (19:50)
[2022-10-28] MEDS: NORTRIPTYLINE HCL 10 MG CAP PO SCH (19:50)
[2022-10-28] MEDS ORDERED: ACETAMINOPHEN 325 MG TAB PO STA (20:45)
[2022-10-29] MEDS: metroNIDAZOLE 500 MG/100 ML BAG IV SCH ×3 (04:22→17:56)
[2022-10-29 06:23] LABS: Basophils # (auto) 0.03 K/uL (0-0.2); Basophils % (auto) 0.4 %; Eosinophils # (auto) 0.25 K/uL (0-0.50); Eosinophils % (auto) 3.3 %; Hemoglobin 13.4 g/dl (12.0-16.0); Immature Granulocytes # (auto) 0.05 K/uL (0.01-0.20); Immature Granulocytes % (auto) 0.7 %; Lymphocytes # (auto) 1.27 K/uL (1.2-3.4); Lymphocytes % (auto) 16.8 %; Mean Corpuscular Hgb Conc 34.4 g/dL (32.0-36.0); Mean Corpuscular Volume 87.4 fL (80.0-100.0); Mean Platelet Volume 10.7 fL (9.4-12.4); Monocytes % (auto) 7.9 %; Neutrophils # (auto) 5.37 K/uL (1.40-6.50); Neutrophils % (auto) 70.9 %; Platelet Count 165 K/uL (130-400); RDW Coefficient of Variation 13.9 % (11.5-14.5); RDW Standard Deviation 44.4 fL (36.4-46.3); Red Blood Count 4.46 M/uL (4.20-5.40); White Blood Count 7.57 K/ul (4.8-10.8)
[2022-10-29 06:25] LABS: Albumin Globulin Ratio 1.3 (0.9-2); Albumin Level 3.1 gm/dl (3.4-5.0); BUN Creatinine Ratio 23.1 (10-20); Bilirubin,Total 0.6 mg/dl (0.2-1.0); Calcium 7.7 mg/dl (8.6-10.3); Creatinine Clr Calc Pharmacy 69.4 ml/min; Est GFR (African American) 105.3 ml/min; Est GFR (Non-African American) 90.9 ml/min; Globulin 2.3 gm/dl (2.5-4.0); Potassium 3.3 mmol/L (3.5-5.1); Total Protein 5.4 gm/dl (6.0-8.3)
[2022-10-29] MEDS: CARBIDOPA/LEVODOPA 25/100MG TAB PO SCH ×5 (07:51→23:36)
[2022-10-29] MEDS: ATORVASTATIN 20 MG TAB PO SCH (07:52)
[2022-10-29] MEDS: FAMOTIDINE 20 MG in SYRINGE 3 ML IV SCH ×2 (07:53→21:15)
[2022-10-29] MEDS: POTASSIUM CHLORIDE CRTAB 20 MEQ TABCR PO SCH (07:54)
[2022-10-29] MEDS: MoRPHine SULFATE 4 MG/ML 1 ML CARP\\VIAL IV PRN ×3 (10:26→21:35)
[2022-10-29] MEDS ORDERED: MAGNESIUM HYDROXIDE SUSP 30 ML UDC PO ONE (10:28)
--- NOTE | 2022-10-29 11:03 | Surgery Progress Note ---
Date of Service October 29, 2022 Assessment & Plan (1) Colitis: Plan: We have been following patient for concern of colitis WBC normalized 7.5. Vital signs are stable She did have a dark BM today and reports some abdominal pain with this, says Tylenol helping Was advanced to low fiber and is tolerating this thus far without issues If worsening pain/symptoms would back diet down, but seems okay to continue current management for now. Still has some ongoing tenderness in mid lower and left lower abdomen to palpation Continue course of abx Admission and Anticipated Discharge Date Admission Date: October 25, 2022 Supervising Physician Co-Signing Physician Notes I personally saw and evaluated the patient with Hoda Wilson PA-C and agree with the assessment and plan. 77-year-old female with likely ischemic colitis, improved Her abdominal exam has improved and she is tolerating a low fiber diet Her vital signs been stable, tachycardia has been resolved for 48 hours and her leukocytosis is also resolved No plans for any surgical intervention She remained stable overnight, she will be stable for discharge from a surgical standpoint She should have an outpatient colonoscopy once discharged Subjective Patient is feeling okay. She had a BM with some dark blood in it and seems like she had some belly pain with this. Otherwise she was advanced to low fiber of which she is tolerating small amounts well. Denies any worsening pain with eating and denies nausea/vomiting. Physical Exam Physical Exam: awake/alert, no distress Respiratory: normal respiratory effort Gastrointestinal (Abdomen): Inspection/Auscultation: abdomen not distended Percussion/Palpation: + abdomen tender (ttp in low mid and left lower abdomen) and abdomen soft Results & Data Vital Signs (Past 12 Hours) Vital Signs Temp Pulse Pulse Pulse Pulse Resp BP 10/29/22 10:34 36.9 C 82 80 18 142/81 H 10/29/22 08:24 10/29/22 08:18 72 10/29/22 07:17 36.6 C 73 20 152/78 H 10/29/22 03:47 36.6 C 70 18 145/77 H 10/28/22 23:30 36.6 C 82 18 129/73 Pulse Ox O2 Del Method 10/29/22 10:34 93 Room Air 10/29/22 08:24 Room Air 10/29/22 08:18 10/29/22 07:17 95 Room Air 10/29/22 03:47 95 Room Air 10/28/22 23:30 95 Room Air PG Care Time/CCT Total # of Minutes Spent Total Time Spent with Patient: Total time spent is greater than 50% in coordination of care (as documented) at patient's floor/unit and/or counseling patient: Coding Level of Care Code 68975 SUB INP/OBS CARE 25MIN Diagnoses Colitis K52.9
[2022-10-29] MEDS: ACETAMINOPHEN 1,000 MG/100 ML VIAL IV SCH ×2 (11:44→17:56)
[2022-10-29] MEDS: CIPROFLOXACIN / D5W 400 MG/200 ML BAG IV SCH ×2 (11:46→23:34)
[2022-10-29] MEDS: POTASSIUM CHLORIDE / WTR 10 MEQ/100 ML PLCT IV SCH ×4 (11:47→18:55)
[2022-10-29 12:12] LABS: Adenovirus F 40/41 PCR Not Detected (NotDetected); Astrovirus PCR Not Detected (NotDetected); Campylobacter PCR Not Detected (NotDetected); Cryptosporidium PCR Not Detected (NotDetected); Cyclospora cayetanensis PCR Not Detected (NotDetected); Entamoeba histolytica PCR Not Detected (NotDetected); Enteroaggregative E.coli(EAEC) Not Detected (NotDetected); Enteropathogenic E.coli (EPEC) Not Detected (NotDetected); Enterotoxigenic E.coli (ETEC) Not Detected (NotDetected); Giardia lamblia PCR Not Detected (NotDetected); Norovirus GI/GII PCR Not Detected (NotDetected); Plesiomonas shigelloides PCR Not Detected (NotDetected); Rotavirus A PCR Not Detected (NotDetected); Salmonella PCR Not Detected (NotDetected); Sapovirus PCR Not Detected (NotDetected); Shiga-like Toxin E.coli (STEC) Not Detected (NotDetected); Shigella/Enteroinvasive E.coli Not Detected (NotDetected); Vibrio cholerae PCR Not Detected (NotDetected); Vibrio species PCR Not Detected (NotDetected); Yersinia enterocolitica PCR Not Detected (NotDetected)
--- NOTE | 2022-10-29 12:38 | Hospitalist Progress Note ---
Date of Service October 29, 2022 Assessment & Plan (1) Abdominal pain: (2) Lactic acidosis: (3) Colitis: Plan: 77-year-old female with past medical history of multiple abdominal surgery, hypertension, Parkinson's disease presented to the hospital with abdominal pain and bloody diarrhea for [address] abdomen and pelvis on admission reviewed;: Fluid-filled consistent with diarrheal state, diverticulosis present Labs personally reviewed today; WBC normalized to 7.57 GI PCR panel results reviewed; negative. Surgery and GI on board. Discussed with GI; recommend outpatient colonoscopy and supportive care. Discussed with surgery; recommend to continue supportive care. Advance diet as tolerated. Patient is on low fiber diet now. Continue on ciprofloxacin and metronidazole day 5 Continue on morphine 1 mg as needed for pain control Continue scheduled Tylenol for the time being Stop IV fluids. (4) Acute blood loss anemia: Plan: Hemoglobin on admission 16.3; Hemoglobin reviewed today; 13.4 today Monitor for bloody diarrhea. will transfuse if hemoglobin is less than 8 (5) Depression: Plan: Continue on home Cymbalta. (6) HTN (hypertension): Plan: Will hold lisinopril for now. Continue on metoprolol (7) Parkinson disease: Plan: Continue on carbidopa levodopa. (8) Hyperlipidemia: Plan: Continue Lipitor Plan Full code DVT SCDs Dispofrom home; lives with her . Continues to be hospitalized due to close monitoring for colitis with bloody diarrhea. PT OT evaluation done; recommend home after resolution of medical issues. Admission and Anticipated Discharge Date Admission Date: October 25, 2022 Subjective Patient seen and examined at bedside. She reports that she had bowel movement in the a.m.; reports passing dark stool. Reports that she is able to tolerate low fiber diet. No nausea or vomiting. No episode of fever. Abdominal pain seems to persist. Review of Systems Review of Systems: All systems reviewed & are unremarkable except as noted in Subjective Physical Exam Physical Exam: Constitutional: Alert orient x3; Respiratory: normal respiratory effort, lungs clear to auscultation, no wheeze, rales, rhonchi. Normal insp/exp effort, no accessory muscle use Cardiovascular: RRR, no murmur, no edema Vessels: no JVD or carotid bruit Chest: normal inspection of chest Abdomen: Lower abdomen soft, tender on superficial palpation. Slightly bloated Musculoskeletal: no cyanosis or clubbing, extremities motor strength 5/5 Skin: no rashes, warm and dry normal turgor Neurologic: Grossly intact Psychiatric: A+Ox3, euthymic affect Lymphatic: no cervical or axillary lymphadenopathy : deferred Results & Data Results & Data Vital Signs (Past 12 Hours) Vital Signs Temp Pulse Pulse Pulse Pulse Resp BP 10/29/22 10:34 36.9 C 82 80 18 142/81 H 10/29/22 08:24 10/29/22 08:18 72 10/29/22 07:17 36.6 C 73 20 152/78 H 10/29/22 03:47 36.6 C 70 18 145/77 H Pulse Ox O2 Del Method 10/29/22 10:34 93 Room Air 10/29/22 08:24 Room Air 10/29/22 08:18 10/29/22 07:17 95 Room Air 10/29/22 03:47 95 Room Air Laboratory Results Laboratory Results WBC 7.57 K/ul (4.8-10.8) 10/29/22 05:52 RBC 4.46 M/uL (4.20-5.40) 10/29/22 05:52 Hgb 13.4 g/dl (12.0-16.0) 10/29/22 05:52 Hct 39.0 % (37.0-47.0) 10/29/22 05:52 MCV 87.4 fL (80.0-100.0) 10/29/22 05:52 MCH 30.0 pg (25.0-34.0) 10/29/22 05:52 MCHC 34.4 g/dL (32.0-36.0) 10/29/22 05:52 RDW Std Deviation 44.4 fL (36.4-46.3) 10/29/22 05:52 RDW Coeff of Fariba 13.9 % (11.5-14.5) 10/29/22 05:52 Plt Count 165 K/uL (130-400) 10/29/22 05:52 MPV 10.7 fL (9.4-12.4) 10/29/22 05:52 Immature Gran % (Auto) 0.7 % 10/29/22 05:52 Neut % (Auto) 70.9 % 10/29/22 05:52 Lymph % (Auto) 16.8 % 10/29/22 05:52 [place] % (Auto) 7.9 % 10/29/22 05:52 Eos % (Auto) 3.3 % 10/29/22 05:52 Baso % (Auto) 0.4 % 10/29/22 05:52 Neut # (Auto) 5.37 K/uL (1.40-6.50) 10/29/22 05:52 Lymph # (Auto) 1.27 K/uL (1.2-3.4) 10/29/22 05:52 [place] # (Auto) 0.60 K/uL (0.11-0.59) H 10/29/22 05:52 Eos # (Auto) 0.25 K/uL (0-0.50) 10/29/22 05:52 Baso # (Auto) 0.03 K/uL (0-0.2) 10/29/22 05:52 Immature Gran # (Auto) 0.05 K/uL (0.01-0.20) 10/29/22 05:52 Sodium 139 mmol/L (136-145) 10/29/22 05:52 Potassium 3.3 mmol/L (3.5-5.1) L 10/29/22 05:52 Chloride 108 mmol/L (98-107) H 10/29/22 05:52 Carbon Dioxide 25 mmol/L (21-32) 10/29/22 05:52 Anion Gap 6 (3-11) 10/29/22 05:52 BUN 12 mg/dl (6-23) 10/29/22 05:52 Creatinine 0.52 mg/dl (0.6-1.2) L 10/29/22 05:52 Est Cr Clr Drug Dosing 69.4 ml/min 10/29/22 05:52 Est GFR ( Amer) 105.3 ml/min 10/29/22 05:52 Est GFR (Non-Af Amer) 90.9 ml/min 10/29/22 05:52 BUN/Creatinine Ratio 23.1 (10-20) H 10/29/22 05:52 Glucose 99 mg/dl (70-99(Fasting)) 10/29/22 05:52 POC Glucose 96 mg/dl (70-99) 10/27/22 00:58 Lactate 1.9 mmol/L (0.4-2.0) 10/26/22 11:02 Calcium 7.7 mg/dl (8.6-10.3) L 10/29/22 05:52 Magnesium 1.8 mg/dl (1.7-2.4) 10/25/22 06:38 Total Bilirubin 0.6 mg/dl (0.2-1.0) 10/29/22 05:52 AST 23 U/L (13-39) 10/29/22 05:52 ALT 5 U/L (7-52) L 10/29/22 05:52 Alkaline Phosphatase 73 U/L (34-104) 10/29/22 05:52 Troponin I High Sens 12.8 pg/ml (0-14) D 10/25/22 06:38 Total Protein 5.4 gm/dl (6.0-8.3) L 10/29/22 05:52 Albumin 3.1 gm/dl (3.4-5.0) L 10/29/22 05:52 Globulin 2.3 gm/dl (2.5-4.0) L 10/29/22 05:52 Albumin/Globulin Ratio 1.3 (0.9-2) 10/29/22 05:52 Lipase 21 U/L (11-82) 10/25/22 01:14 Urine Color Yellow 10/25/22 01:57 Urine Appearance Clear (Clear) 10/25/22 01:57 Urine pH 6.0 (4.5-7.5) 10/25/22 01:57 Ur Specific [place] 1.019 (1.000-1.030) 10/25/22 01:57 Urine Protein Negative (Negative) 10/25/22 01:57 Urine Glucose (UA) Negative (Negative) 10/25/22 01:57 Urine Ketones Trace (Negative) H 10/25/22 01:57 Urine Blood Negative (Negative) 10/25/22 01:57 Urine Nitrite Negative (Negative) 10/25/22 01:57 Urine Bilirubin Negative (Negative) 10/25/22 01:57 Urine Urobilinogen Negative (Negative) 10/25/22 01:57 Ur Leukocyte Esterase Negative (Negative) 10/25/22 01:57 Stl C. cayetanensis PCR Not Detected (NotDetected) 10/29/22 08:20 Stool Rotavirus A PCR Not Detected (NotDetected) 10/29/22 08:20 Stl Adenov F 40/41 PCR Not Detected (NotDetected) 10/29/22 08:20 Stool Astrovirus (PCR) Not Detected (NotDetected) 10/29/22 08:20 Stool Campylobacter PCR Not Detected (NotDetected) 10/29/22 08:20 Stool Cryptosporidium PCR Not Detected (NotDetected) 10/29/22 08:20 Stl E.coli Shiga Tox PCR Not Detected (NotDetected) 10/29/22 08:20 Stl Enterotoxigenic E PCR Not Detected (NotDetected) 10/29/22 08:20 Stool EPEC (PCR) Not Detected (NotDetected) 10/29/22 08:20 Stool EAEC (PCR) Not Detected (NotDetected) 10/29/22 08:20 Stl E. histolytica PCR Not Detected (NotDetected) 10/29/22 08:20 Stool Giardia Lamblia PCR Not Detected (NotDetected) 10/29/22 08:20 Stool Salmonella PCR Not Detected (NotDetected) 10/29/22 08:20 Stool Sapovirus (PCR) Not Detected (NotDetected) 10/29/22 08:20 Stl P. shigelloides PCR Not Detected (NotDetected) 10/29/22 08:20 Stl Shigella/EIEC PCR Not Detected (NotDetected) 10/29/22 08:20 St Y.enterocolitica PCR Not Detected (NotDetected) 10/29/22 08:20 Stool Vibrio (PCR) Not Detected (NotDetected) 10/29/22 08:20 Stl Vibrio cholerae PCR Not Detected (NotDetected) 10/29/22 08:20 Stl Norovirus GI/GII PCR Not Detected (NotDetected) 10/29/22 08:20 SARS-CoV-2, RNA, NAAT NEGATIVE (NEGATIVE) 10/25/22 01:53 Impressions Abdomen/Pelvis CT 10/25/22 01:09 Exam(s): CT ABDOMEN + PELVIS With Contrast IV Amt: 86 ML OPTIRAY 350 EXAM: CT Abdomen and Pelvis With Intravenous Contrast CLINICAL HISTORY: Abdominal pain. TECHNIQUE: Axial computed tomography images of the abdomen and pelvis with intravenous contrast. CTDI is 5.68 mGy and DLP is 256.34 mGy-cm. Automated exposure control was utilized for the study. A dose lowering technique was utilized adhering to the principles of ALARA. CONTRAST: Patient received 86 ML OPTIRAY 350 of IV contrast COMPARISON: No relevant prior studies available. FINDINGS: Lung bases: Unremarkable. No mass. No consolidation. ABDOMEN: Liver: Unremarkable. No mass. Gallbladder and bile ducts: Unremarkable. No calcified stones. No ductal dilation. Pancreas: Unremarkable. No mass. No ductal dilation. Spleen: Unremarkable. No splenomegaly. Adrenals: Unremarkable. No mass. Kidneys and ureters: Mild bilateral hydronephrosis. Nonobstructing punctate right renal calculus. No obstructing nephrolithiasis. Stomach and bowel: The colon is fluid-filled, this is consistent with diarrheal state. Diverticulosis. No obstruction. No mucosal thickening. PELVIS: Appendix: No findings to suggest acute appendicitis. Bladder: Unremarkable. No mass. Reproductive: Unremarkable as visualized. ABDOMEN and PELVIS: Intraperitoneal space: Unremarkable. No free air. No significant fluid collection. Bones/joints: There are degenerative changes of the spine. No fracture. No dislocation. Soft tissues: Unremarkable. Vasculature: Mild atherosclerosis. No abdominal aortic aneurysm. Lymph nodes: Unremarkable. No enlarged lymph nodes. IMPRESSION: 1. Mild bilateral hydronephrosis. 2. The colon is fluid-filled, this is consistent with diarrheal state. 3. Nonobstructing punctate right renal calculus. No obstructing nephrolithiasis. 4. Diverticulosis. Electronically signed by: Lay Perea MD 10/25/22 03:37 AM KUB X-Ray 10/28/22 09:03 XR KUB/Abdomen 1 view CLINICAL HISTORY: Abdominal distension TECHNIQUE: 1 view of the abdomen was obtained. Comparison: Comparison is made to CT abdomen pelvis 10/15/2022 FINDINGS: Lung bases are unremarkable. Degenerative changes are seen in the visualized skeleton. The bowel gas pattern is nonobstructive. Small stool burden is seen. G astric distention is seen in the colon. IMPRESSION: No radiographic evidence of small bowel obstruction. ACT 112: Negative or not required by law. Electronically signed by: Stef Jenkins M.D. 10/28/2022 1:25 PM
[2022-10-29] MEDS: lisinopril 20 MG TAB PO SCH (16:25)
[2022-10-29] MEDS: NORTRIPTYLINE HCL 10 MG CAP PO SCH (21:11)
[2022-10-29] MEDS: nitrofurantoin macrocrystaL 50 MG CAP PO SCH (21:11)
[2022-10-29] MEDS: DULoxetine HCL 30 MG CAP PO SCH (21:11)
[2022-10-29] MEDS: METOPROLOL SUCC 25MG EXT REL TAB PO SCH (21:25)
[2022-10-29] MEDS: D5W AND LACTATED RINGERS 1,000 ML IV SCH ×2 (21:57→22:14)
[2022-10-30] MEDS: ACETAMINOPHEN 1,000 MG/100 ML VIAL IV SCH ×3 (03:39→18:28)
[2022-10-30] MEDS: CALCIUM CARBONATE 500 MG CHEWABLE TAB PO PRN ×2 (03:39→19:47)
[2022-10-30] MEDS: metroNIDAZOLE 500 MG/100 ML BAG IV SCH ×3 (03:41→18:27)
[2022-10-30] MEDS: CARBIDOPA/LEVODOPA 25/100MG TAB PO SCH ×5 (06:07→22:13)
[2022-10-30 07:20] LABS: Basophils # (auto) 0.02 K/uL (0-0.2); Basophils % (auto) 0.3 %; Eosinophils # (auto) 0.28 K/uL (0-0.50); Eosinophils % (auto) 4.2 %; Hematocrit (blood only) 39.1 % (37.0-47.0); Hemoglobin 13.3 g/dl (12.0-16.0); Immature Granulocytes # (auto) 0.07 K/uL (0.01-0.20); Lymphocytes # (auto) 1.32 K/uL (1.2-3.4); Lymphocytes % (auto) 19.8 %; Mean Corpuscular Hemoglobin 29.8 pg (25.0-34.0); Mean Corpuscular Volume 87.5 fL (80.0-100.0); Mean Platelet Volume 10.5 fL (9.4-12.4); Monocytes # (auto) 0.72 K/uL (0.11-0.59); Monocytes % (auto) 10.8 %; Neutrophils # (auto) 4.26 K/uL (1.40-6.50); Neutrophils % (auto) 63.9 %; Platelet Count 184 K/uL (130-400); RDW Coefficient of Variation 14.1 % (11.5-14.5); RDW Standard Deviation 45.5 fL (36.4-46.3); Red Blood Count 4.47 M/uL (4.20-5.40); White Blood Count 6.67 K/ul (4.8-10.8)
[2022-10-30 07:40] LABS: Albumin Globulin Ratio 1.3 (0.9-2); Albumin Level 3.1 gm/dl (3.4-5.0); BUN Creatinine Ratio 26.4 (10-20); Bilirubin,Total 0.4 mg/dl (0.2-1.0); Calcium 7.7 mg/dl (8.6-10.3); Creatinine Clr Calc Pharmacy 68.1 ml/min; Est GFR (African American) 104.7 ml/min; Est GFR (Non-African American) 90.3 ml/min; Globulin 2.3 gm/dl (2.5-4.0); Potassium 3.8 mmol/L (3.5-5.1); Total Protein 5.4 gm/dl (6.0-8.3)
--- NOTE | 2022-10-30 07:55 | Surgery Progress Note ---
Date of Service October 30, 2022 Assessment & Plan (1) Colitis: Plan: We have been following patient for concern of colitis WBC remains normal at 6.6. Vitals stable, afebrile Doing fairly well on low fiber diet Pain remains present in lower abdomen, but examination as improved Complete course of abx at home Stable for discharge from our POV once cleared by medicine Recommend outpatient colonoscopy Admission and Anticipated Discharge Date Admission Date: October 25, 2022 Supervising Physician Co-Signing Physician Notes I personally saw and evaluated the patient with Hoda Wilson PA-C and agree with the assessment and plan. 77-year-old female with likely ischemic colitis, improved She remains without fever, tachycardia or leukocytosis She is tolerating a low fiber diet without issue No indications for any surgery She should have an outpatient colonoscopy once discharged Surgery will sign off at this time, please call with any questions or concerns Subjective Patient feeling okay this AM. Says she is tolerating small amounts of low fiber diet. Mild nausea overnight, but improved currently. No bouts of emesis. Is passing flatus. Last BM was yesterday. Pain controlled and not worsening. Physical Exam Physical Exam: awake/alert, no distress Respiratory: normal respiratory effort Gastrointestinal (Abdomen): Inspection/Auscultation: abdomen not distended Percussion/Palpation: + abdomen tender (discomfort to palpation in lower abdo men, improved) and abdomen soft; no guarding Results & Data Vital Signs (Past 12 Hours) Vital Signs Temp Pulse Pulse Resp BP Pulse Ox O2 Del Method 10/30/22 07:22 36.4 C L 70 16 121/72 97 Room Air 10/30/22 03:38 36.5 C 72 18 126/72 95 Room Air 10/29/22 21:59 73 10/29/22 23:17 36.9 C 83 20 132/74 98 Room Air 10/29/22 20:00 36.5 C 78 20 143/79 H 97 Room Air PG Care Time/CCT Total # of Minutes Spent Total Time Spent with Patient: Total time spent is greater than 50% in coordination of care (as documented) at patient's floor/unit and/or counseling patient: Coding Level of Care Code 98915 SUB INP/OBS CARE 25MIN Diagnoses Colitis K52.9
[2022-10-30] MEDS: ATORVASTATIN 20 MG TAB PO SCH (08:18)
[2022-10-30] MEDS: lisinopril 20 MG TAB PO SCH (08:18)
[2022-10-30] MEDS: POTASSIUM CHLORIDE CRTAB 20 MEQ TABCR PO SCH (08:21)
[2022-10-30] MEDS: FAMOTIDINE 20 MG in SYRINGE 3 ML IV SCH (08:22)
[2022-10-30] MEDS ORDERED: MoRPHine SULFATE 2 MG/ML CARP IV PRN (09:02)
[2022-10-30] MEDS ORDERED: MAGNESIUM HYDROXIDE SUSP 30 ML UDC PO ONE (09:23)
[2022-10-30] MEDS: CIPROFLOXACIN / D5W 400 MG/200 ML BAG IV SCH ×2 (10:48→23:19)
--- NOTE | 2022-10-30 13:22 | Hospitalist Progress Note ---
Date of Service October 30, 2022 Assessment & Plan (1) Abdominal pain: (2) Lactic acidosis: (3) Colitis: Plan: 77-year-old female with past medical history of multiple abdominal surgery, hypertension, Parkinson's disease presented to the hospital with abdominal pain and bloody diarrhea for [address] abdomen and pelvis on admission reviewed;: Fluid-filled consistent with diarrheal state, diverticulosis present Labs personally reviewed today; WBC normalized to 6.67 GI PCR panel results reviewed; negative. Surgery and GI on board. Discussed with GI; recommend outpatient colonoscopy and supportive care. Discussed with surgery; recommend to continue supportive care. Advance diet as tolerated. Patient is on low fiber diet now. Continue on ciprofloxacin and metronidazole day 6; will provide total of 10-day course. Continue on morphine 1 mg as needed for pain control Continue scheduled Tylenol for the time being (4) Acute blood loss anemia: Plan: Hemoglobin on admission 16.3; Hemoglobin reviewed today; 13.3 today Monitor for bloody diarrhea. will transfuse if hemoglobin is less than 8 (5) Depression: Plan: Continue on home Cymbalta. (6) HTN (hypertension): Plan: Home antihypertensive were held on admission due to low blood pressure. Resume for now. (7) Parkinson disease: Plan: Continue on carbidopa levodopa. (8) Hyperlipidemia: Plan: Continue Lipitor Plan Full code DVT SCDs Dispofrom home; lives with her . Continues to be hospitalized due to close monitoring for colitis with bloody diarrhea. PT OT evaluation done; recommend home after resolution of medical issues. Patient continues to be hospitalized due to significant abdominal pain requiring closer monitoring inpatient. Possible discharge in a.m. Admission and Anticipated Discharge Date Admission Date: October 25, 2022 Subjective Patient seen and examined at bedside. She reports that her abdominal pain has slightly improved. Reports abdominal distention; passing gas. No bowel movement yet today. Review of Systems Review of Systems: All systems reviewed & are unremarkable except as noted in Subjective Physical Exam Physical Exam: Constitutional: Alert orient x3; Respiratory: normal respiratory effort, lungs clear to auscultation, no wheeze, rales, rhonchi. Normal insp/exp effort, no accessory muscle use Cardiovascular: RRR, no murmur, no edema Vessels: no JVD or carotid bruit Chest: normal inspection of chest Abdomen: Lower abdomen tender on deep palpation; bowel sound present. Musculoskeletal: no cyanosis or clubbing, extremities motor strength 5/5 Skin: no rashes, warm and dry normal turgor Neurologic: Grossly intact Psychiatric: A+Ox3, euthymic affect Lymphatic: no cervical or axillary lymphadenopathy : deferred Results & Data Results & Data Vital Signs (Past 12 Hours) Vital Signs Temp Pulse Pulse Resp BP Pulse Ox O2 Del Method 10/30/22 11:34 36.3 C L 74 16 121/72 95 Room Air 10/30/22 08:00 78 10/30/22 07:22 36.4 C L 70 16 121/72 97 Room Air 10/30/22 03:38 36.5 C 72 18 126/72 95 Room Air Laboratory Results Laboratory Results WBC 6.67 K/ul (4.8-10.8) 10/30/22 06:51 RBC 4.47 M/uL (4.20-5.40) 10/30/22 06:51 Hgb 13.3 g/dl (12.0-16.0) 10/30/22 06:51 Hct 39.1 % (37.0-47.0) 10/30/22 06:51 MCV 87.5 fL (80.0-100.0) 10/30/22 06:51 MCH 29.8 pg (25.0-34.0) 10/30/22 06:51 MCHC 34.0 g/dL (32.0-36.0) 10/30/22 06:51 RDW Std Deviation 45.5 fL (36.4-46.3) 10/30/22 06:51 RDW Coeff of Fariba 14.1 % (11.5-14.5) 10/30/22 06:51 Plt Count 184 K/uL (130-400) 10/30/22 06:51 MPV 10.5 fL (9.4-12.4) 10/30/22 06:51 Immature Gran % (Auto) 1.0 % 10/30/22 06:51 Neut % (Auto) 63.9 % 10/30/22 06:51 Lymph % (Auto) 19.8 % 10/30/22 06:51 [place] % (Auto) 10.8 % 10/30/22 06:51 Eos % (Auto) 4.2 % 10/30/22 06:51 Baso % (Auto) 0.3 % 10/30/22 06:51 Neut # (Auto) 4.26 K/uL (1.40-6.50) 10/30/22 06:51 Lymph # (Auto) 1.32 K/uL (1.2-3.4) 10/30/22 06:51 [place] # (Auto) 0.72 K/uL (0.11-0.59) H 10/30/22 06:51 Eos # (Auto) 0.28 K/uL (0-0.50) 10/30/22 06:51 Baso # (Auto) 0.02 K/uL (0-0.2) 10/30/22 06:51 Immature Gran # (Auto) 0.07 K/uL (0.01-0.20) 10/30/22 06:51 Sodium 137 mmol/L (136-145) 10/30/22 06:51 Potassium 3.8 mmol/L (3.5-5.1) 10/30/22 06:51 Chloride 107 mmol/L (98-107) 10/30/22 06:51 Carbon Dioxide 25 mmol/L (21-32) 10/30/22 06:51 Anion Gap 5 (3-11) 10/30/22 06:51 BUN 14 mg/dl (6-23) 10/30/22 06:51 Creatinine 0.53 mg/dl (0.6-1.2) L 10/30/22 06:51 Est Cr Clr Drug Dosing 68.1 ml/min 10/30/22 06:51 Est GFR ( Amer) 104.7 ml/min 10/30/22 06:51 Est GFR (Non-Af Amer) 90.3 ml/min 10/30/22 06:51 BUN/Creatinine Ratio 26.4 (10-20) H 10/30/22 06:51 Glucose 102 mg/dl (70-99(Fasting)) H 10/30/22 06:51 POC Glucose 96 mg/dl (70-99) 10/27/22 00:58 Lactate 1.9 mmol/L (0.4-2.0) 10/26/22 11:02 Calcium 7.7 mg/dl (8.6-10.3) L 10/30/22 06:51 Magnesium 1.8 mg/dl (1.7-2.4) 10/25/22 06:38 Total Bilirubin 0.4 mg/dl (0.2-1.0) 10/30/22 06:51 AST 71 U/L (13-39) H 10/30/22 06:51 ALT 12 U/L (7-52) 10/30/22 06:51 Alkaline Phosphatase 86 U/L (34-104) 10/30/22 06:51 Troponin I High Sens 12.8 pg/ml (0-14) D 10/25/22 06:38 Total Protein 5.4 gm/dl (6.0-8.3) L 10/30/22 06:51 Albumin 3.1 gm/dl (3.4-5.0) L 10/30/22 06:51 Globulin 2.3 gm/dl (2.5-4.0) L 10/30/22 06:51 Albumin/Globulin Ratio 1.3 (0.9-2) 10/30/22 06:51 Lipase 21 U/L (11-82) 10/25/22 01:14 Urine Color Yellow 10/25/22 01:57 Urine Appearance Clear (Clear) 10/25/22 01:57 Urine pH 6.0 (4.5-7.5) 10/25/22 01:57 Ur Specific [place] 1.019 (1.000-1.030) 10/25/22 01:57 Urine Protein Negative (Negative) 10/25/22 01:57 Urine Glucose (UA) Negative (Negative) 10/25/22 01:57 Urine Ketones Trace (Negative) H 10/25/22 01:57 Urine Blood Negative (Negative) 10/25/22 01:57 Urine Nitrite Negative (Negative) 10/25/22 01:57 Urine Bilirubin Negative (Negative) 10/25/22 01:57 Urine Urobilinogen Negative (Negative) 10/25/22 01:57 Ur Leukocyte Esterase Negative (Negative) 10/25/22 01:57 Stl C. cayetanensis PCR Not Detected (NotDetected) 10/29/22 08:20 Stool Rotavirus A PCR Not Detected (NotDetected) 10/29/22 08:20 Stl Adenov F 40/41 PCR Not Detected (NotDetected) 10/29/22 08:20 Stool Astrovirus (PCR) Not Detected (NotDetected) 10/29/22 08:20 Stool Campylobacter PCR Not Detected (NotDetected) 10/29/22 08:20 Stool Cryptosporidium PCR Not Detected (NotDetected) 10/29/22 08:20 Stl E.coli Shiga Tox PCR Not Detected (NotDetected) 10/29/22 08:20 Stl Enterotoxigenic E PCR Not Detected (NotDetected) 10/29/22 08:20 Stool EPEC (PCR) Not Detected (NotDetected) 10/29/22 08:20 Stool EAEC (PCR) Not Detected (NotDetected) 10/29/22 08:20 Stl E. histolytica PCR Not Detected (NotDetected) 10/29/22 08:20 Stool Giardia Lamblia PCR Not Detected (NotDetected) 10/29/22 08:20 Stool Salmonella PCR Not Detected (NotDetected) 10/29/22 08:20 Stool Sapovirus (PCR) Not Detected (NotDetected) 10/29/22 08:20 Stl P. shigelloides PCR Not Detected (NotDetected) 10/29/22 08:20 Stl Shigella/EIEC PCR Not Detected (NotDetected) 10/29/22 08:20 St Y.enterocolitica PCR Not Detected (NotDetected) 10/29/22 08:20 Stool Vibrio (PCR) Not Detected (NotDetected) 10/29/22 08:20 Stl Vibrio cholerae PCR Not Detected (NotDetected) 10/29/22 08:20 Stl Norovirus GI/GII PCR Not Detected (NotDetected) 10/29/22 08:20 SARS-CoV-2, RNA, NAAT NEGATIVE (NEGATIVE) 10/25/22 01:53 Impressions Abdomen/Pelvis CT 10/25/22 01:09 Exam(s): CT ABDOMEN + PELVIS With Contrast IV Amt: 86 ML OPTIRAY 350 EXAM: CT Abdomen and Pelvis With Intravenous Contrast CLINICAL HISTORY: Abdominal pain. TECHNIQUE: Axial computed tomography images of the abdomen and pelvis with intravenous contrast. CTDI is 5.68 mGy and DLP is 256.34 mGy-cm. Automated exposure control was utilized for the study. A dose lowering technique was utilized adhering to the principles of ALARA. CONTRAST: Patient received 86 ML OPTIRAY 350 of IV contrast COMPARISON: No relevant prior studies available. FINDINGS: Lung bases: Unremarkable. No mass. No consolidation. ABDOMEN: Liver: Unremarkable. No mass. Gallbladder and bile ducts: Unremarkable. No calcified stones. No ductal dilation. Pancreas: Unremarkable. No mass. No ductal dilation. Spleen: Unremarkable. No splenomegaly. Adrenals: Unremarkable. No mass. Kidneys and ureters: Mild bilateral hydronephrosis. Nonobstructing punctate right renal calculus. No obstructing nephrolithiasis. Stomach and bowel: The colon is fluid-filled, this is consistent with diarrheal state. Diverticulosis. No obstruction. No mucosal thickening. PELVIS: Appendix: No findings to suggest acute appendicitis. Bladder: Unremarkable. No mass. Reproductive: Unremarkable as visualized. ABDOMEN and PELVIS: Intraperitoneal space: Unremarkable. No free air. No significant fluid collection. Bones/joints: There are degenerative changes of the spine. No fracture. No dislocation. Soft tissues: Unremarkable. Vasculature: Mild atherosclerosis. No abdominal aortic aneurysm. Lymph nodes: Unremarkable. No enlarged lymph nodes. IMPRESSION: 1. Mild bilateral hydronephrosis. 2. The colon is fluid-filled, this is consistent with diarrheal state. 3. Nonobstructing punctate right renal calculus. No obstructing nephrolithiasis. 4. Diverticulosis. Electronically signed by: Lay Perea MD 10/25/22 03:37 AM KUB X-Ray 10/28/22 09:03 XR KUB/Abdomen 1 view CLINICAL HISTORY: Abdominal distension TECHNIQUE: 1 view of the abdomen was obtained. Comparison: Comparison is made to CT abdomen pelvis 10/15/2022 FINDINGS: Lung bases are unremarkable. Degenerative changes are seen in the visualized skeleton. The bowel gas pattern is nonobstructive. Small stool burden is seen. Gastric distention is seen in the colon. IMPRESSION: No radiographic evidence of small bowel obstruction. ACT 112: Negative or not required by law. Electronically signed by: Stef Jenkins M.D. 10/28/2022 1:25 PM
[2022-10-30] MEDS: MoRPHine SULFATE 2 MG/ML CARP IV PRN (14:43)
[2022-10-30] MEDS: DULoxetine HCL 30 MG CAP PO SCH (20:41)
[2022-10-30] MEDS: nitrofurantoin macrocrystaL 50 MG CAP PO SCH (20:41)
[2022-10-30] MEDS: FAMOTIDINE 20 MG TAB PO SCH (20:41)
[2022-10-30] MEDS: NORTRIPTYLINE HCL 10 MG CAP PO SCH (20:41)
[2022-10-30] MEDS: METOPROLOL SUCC 25MG EXT REL TAB PO SCH (22:11)
[2022-10-31] MEDS: ACETAMINOPHEN 1,000 MG/100 ML VIAL IV SCH ×2 (03:22→12:07)
[2022-10-31] MEDS: metroNIDAZOLE 500 MG/100 ML BAG IV SCH ×2 (03:23→12:07)
[2022-10-31] MEDS: MoRPHine SULFATE 2 MG/ML CARP IV PRN (04:50)
[2022-10-31] MEDS: CARBIDOPA/LEVODOPA 25/100MG TAB PO SCH ×2 (07:29→11:27)
[2022-10-31 07:36] LABS: Basophils # (auto) 0.02 K/uL (0-0.2); Basophils % (auto) 0.3 %; Eosinophils # (auto) 0.29 K/uL (0-0.50); Eosinophils % (auto) 4.4 %; Hematocrit (blood only) 37.2 % (37.0-47.0); Hemoglobin 12.9 g/dl (12.0-16.0); Immature Granulocytes # (auto) 0.14 K/uL (0.01-0.20); Immature Granulocytes % (auto) 2.1 %; Lymphocytes # (auto) 1.37 K/uL (1.2-3.4); Lymphocytes % (auto) 20.7 %; Mean Corpuscular Hemoglobin 29.8 pg (25.0-34.0); Mean Corpuscular Hgb Conc 34.7 g/dL (32.0-36.0); Mean Corpuscular Volume 85.9 fL (80.0-100.0); Mean Platelet Volume 10.3 fL (9.4-12.4); Monocytes # (auto) 0.79 K/uL (0.11-0.59); Neutrophils % (auto) 60.5 %; Platelet Count 206 K/uL (130-400); RDW Coefficient of Variation 14.3 % (11.5-14.5); RDW Standard Deviation 44.6 fL (36.4-46.3); Red Blood Count 4.33 M/uL (4.20-5.40); White Blood Count 6.61 K/ul (4.8-10.8)
[2022-10-31] MEDS: FAMOTIDINE 20 MG TAB PO SCH (08:02)
[2022-10-31] MEDS: ATORVASTATIN 20 MG TAB PO SCH (08:02)
[2022-10-31] MEDS: lisinopril 20 MG TAB PO SCH (08:03)
[2022-10-31 08:05] LABS: BUN Creatinine Ratio 28.1 (10-20); Calcium 7.9 mg/dl (8.6-10.3); Creatinine Clr Calc Pharmacy 63.3 ml/min; Est GFR (African American) 102.2 ml/min; Est GFR (Non-African American) 88.2 ml/min; Potassium 3.9 mmol/L (3.5-5.1)
[2022-10-31] MEDS: POTASSIUM CHLORIDE CRTAB 20 MEQ TABCR PO SCH (08:35)
--- NOTE | 2022-10-31 11:02 | Hospitalist Progress Note ---
Date of Service October 31, 2022 Assessment & Plan (1) Abdominal pain: (2) Lactic acidosis: (3) Colitis: Plan: per previous hospitalist notes with addendum: 77-year-old female with past medical history of multiple abdominal surgery, hypertension, Parkinson's disease presented to the hospital with abdominal pain and bloody diarrhea for [address] abdomen and pelvis on admission reviewed;: Fluid-filled consistent with diarrheal state, diverticulosis present Labs personally reviewed today; WBC normalized to 6.67 GI PCR panel results reviewed; negative. Surgery and GI on board. Discussed with GI; recommend outpatient colonoscopy and supportive care. Discussed with surgery; recommend to continue supportive care. Advance diet as tolerated. Patient is on low fiber diet now. Continue on ciprofloxacin and metronidazole day 6; will provide total of 10-day course. Continue on morphine 1 mg as needed for pain control Continue scheduled Tylenol for the time being 4/5 Patient significantly improved States she is ready for discharge today Discharge plan: 3 more days of ciprofloxacin plus Flagyl to complete 10-day course Follow-up with PCP this coming Saturday Will need outpatient colonoscopy per GI (4) Acute blood loss anemia: Plan: Hemoglobin on admission 16.3 Decreased to 13 but remained stable since admission ff up as outpatient (5) Depression: Plan: Continue on home Cymbalta. (6) HTN (hypertension): Plan: continue Lisinopril (7) Parkinson disease: Plan: Continue on carbidopa levodopa. (8) Hyperlipidemia: Plan: Continue Lipitor Plan Full code DVT SCDs Dispo Discharge to home Follow-up with PCP this week plan of care discussed with patient in detail and at length all questions answered she is understanding, agreeable, comfortable with the plan of care Admission and Anticipated Discharge Date Admission Date: October 25, 2022 Subjective Follow-up for colitis, acute blood loss anemia, etc. Seen resting in bed, sitting up, in good spirits, very pleasant States she feels much better overall Very minimal abdominal discomfort, tolerating diet well No nausea or vomiting No fevers or chills no chest pain, dyspnea, palpitations, dizziness No other new symptoms Review of Systems Review of Systems: all noted and negative except for above Physical Exam Physical Exam: General- oriented x 3, not in distress, speaks in sentences with no effort or accessory muscle use Eyes- anicteric Neck- no JVD Lungs- clear BS bilaterally, no rales/wheezes Heart- normal rate, regular rhythm; no murmurs Abdomen- normal bowel sounds, nondistended, soft, nontender Extremities- no pretibial edema, no calf tenderness Neuro- alert, oriented x 3; no gross focal neurologic deficits Skin- warm & dry Results & Data Results & Data Vital Signs (Past 12 Hours) Vital Signs Temp Pulse Pulse Resp BP Pulse Ox O2 Del Method 10/31/22 07:15 36.5 C 76 18 124/82 96 Room Air 10/31/22 07:12 73 10/31/22 04:15 36.5 C 73 20 145/79 H 97 Room Air 10/31/22 00:35 79 10/30/22 23:53 37.0 C 70 20 124/72 95 Room Air all noted and reviewed including below
[2022-10-31] MEDS: CIPROFLOXACIN / D5W 400 MG/200 ML BAG IV SCH (12:07)
--- NOTE | 2022-10-31 18:33 | Discharge Summary ---
Discharge Summary Date of Service October 31, 2022 Notes For Next Care Provider Please refer to outpatient colonoscopy in 2 months per gastroenterology service Medication Changes From Visit Ciprofloxacin 500 mg twice daily x3 days Flagyl 500 mg 3 times daily x3 days Admission HPI Per Admitting Provider HISTORY OF PRESENT ILLNESS: A 77-year-old female with past medical history significant for hypertension, GERD, history of fecal incontinence, cystocele, senile osteoporosis, degenerative disk disease, Parkinson's disease, depression, history of GI bleed, history of recurrent UTIs, presents with nausea, vomiting, abdominal pain, and bloody diarrhea. The patient says since yesterday 8:00 p.m., had several episodes of diarrhea. She noticed blood in her stools and also she had vomiting. She was having a episode of vomiting when I was examining the patient, greenish vomitus. Complains of severe abdominal pain, radiating to the back. She said earlier around 4:00 p.m. yesterday, she had some chest tightness, but that got resolved now. Denies any shortness of breath, no fevers, no cough. Has some runny nose. No sore throat. No headache. She is micturating fine, afebrile. No eating of food outside. No one is sick in the family. Admission Exam Per Admitting Provider GENERAL: The patient is of moderate build, seems to be in pain. VITAL SIGNS: Temperature 36.4, pulse 94, respiratory rate 19, blood pressure 181/96, oxygen 99% on room air. HEENT: Extraocular muscles intact. Atraumatic. NECK: No neck masses seen. CARDIOVASCULAR: S1 and S2 heard. Regular rate and rhythm. No murmur, no gallop. RESPIRATORY SYSTEM: Normal AP diameter. No accessory muscle use. No wheezing. ABDOMEN: Soft, bowel sounds sluggish. No distention. Diffuse tenderness and guarding present. No rigidity. CENTRAL NERVOUS SYSTEM: Alert and oriented. Speech is clear. No facial droop. Obeys simple commands. Moves extremities. EXTREMITIES: No edema, no erythema. Principal Dx & Hospital Course #1 = Principal Diagnosis (1) Abdominal pain: (2) Lactic acidosis: (3) Colitis: per previous hospitalist notes with addendum: 77-year-old female with past medical history of multiple abdominal surgery, hypertension, Parkinson's disease presented to the hospital with abdominal pain and bloody diarrhea for [address] abdomen and pelvis on admission reviewed;: Fluid-filled consistent with diarrheal state, diverticulosis present Labs personally reviewed today; WBC normalized to 6.67 GI PCR panel results reviewed; negative. Surgery and GI on board. Discussed with GI; recommend outpatient colonoscopy and supportive care. Discussed with surgery; recommend to continue supportive care. Advance diet as tolerated. Patient is on low fiber diet now. Continue on ciprofloxacin and metronidazole day 6; will provide total of 10-day course. Continue on morphine 1 mg as needed for pain control Continue scheduled Tylenol for the time being 4/5 Patient significantly improved States she is ready for discharge today Discharge plan: 3 more days of ciprofloxacin plus Flagyl to complete 10-day course Follow-up with PCP this coming Saturday Will need outpatient colonoscopy per GI (4) Acute blood loss anemia: Hemoglobin on admission 16.3 Decreased to 13 but remained stable since admission ff up as outpatient (5) Depression: Continue on home Cymbalta. (6) HTN (hypertension): continue Lisinopril (7) Parkinson disease: Continue on carbidopa levodopa. (8) Hyperlipidemia: Continue Lipitor Plan Full code DVT SCDs Dispo Discharge to home Follow-up with PCP this week plan of care discussed with patient in detail and at length all questions answered she is understanding, agreeable, comfortable with the plan of care Discharge Exam General- oriented x 3, not in distress, speaks in sentences with no effort or accessory muscle use Eyes- anicteric Neck- no JVD Lungs- clear breath sounds bilaterally, no rales/wheezes Heart- normal rate, regular rhythm; no murmurs Abdomen- normal bowel sounds, nondistended, soft, nontender Extremities- no pretibial edema, no calf tenderness Neuro- alert, oriented x 3; no gross focal neurologic deficits Skin- warm & dry Updated Medication List Medication Instructions Recorded Confirmed Type acetaminophen 325 mg tablet 325 mg PO Q4 PRN Pain 11/16/21 10/25/22 History atorvastatin 20 mg tablet 20 mg PO DAILY 11/16/21 10/25/22 History carbidopa 25 mg-levodopa 100 mg 1 tab PO 5XD 11/16/21 10/25/22 History tablet denosumab 60 mg/mL subcutaneous 60 mg subcut UD 11/16/21 10/25/22 History syringe (Prolia) duloxetine 30 mg capsule,delayed 30 mg PO QPM 11/16/21 10/25/22 History release famotidine 20 mg tablet 20 mg PO BID 11/16/21 10/25/22 History lisinopril 20 mg tablet 20 mg PO BID 11/16/21 10/25/22 History metoprolol succinate 25 mg 25 mg PO HS 11/16/21 10/25/22 History tablet,extended release 24 hr metronidazole 0.75 % topical cream 1 applic topical BID PRN ROSACEA 11/16/21 10/25/22 History nortriptyline 10 mg capsule 10 mg PO HS 11/16/21 10/25/22 History potassium chloride 20 mEq 20 meq PO QAM 11/16/21 10/25/22 History tablet,extended release bixsnldh-cpw-cxdps acid 0.4 1 tab PO DAILY 10/25/22 10/25/22 History mg-lycopene 300 mcg-lutein 250 mcg tablet nitrofurantoin macrocrystal 100 mg 100 mg PO HS 10/25/22 10/25/22 History capsule ciprofloxacin HCl 500 mg tablet 500 mg PO BID 3 days #6 tabs 10/31/22 Rx (Cipro) metronidazole 500 mg tablet 500 mg PO TID 3 days #9 tabs 10/31/22 Rx Hospital Stay Data Consultations 10/25/22 03:46 ED Decision to Admit Stat 10/25/22 08:00 Consult Gastroenterology Routine 10/25/22 12:20 Consult General Surgery Routine Diagnostic Imagining Performed 10/25/22 01:09 CT abd pelvis IV con only Stat CLINICAL HISTORY: Abdominal pain. TECHNIQUE: Axial computed tomography images of the abdomen and pelvis with intravenous contrast. CTDI is 5.68 mGy and DLP is 256.34 mGy-cm. Automated exposure control was utilized for the study. A dose lowering technique was utilized adhering to the principles of ALARA. CONTRAST: Patient received 86 ML OPTIRAY 350 of IV contrast COMPARISON: No relevant prior studies available. FINDINGS: Lung bases: Unremarkable. No mass. No consolidation. ABDOMEN: Liver: Unremarkable. No mass. Gallbladder and bile ducts: Unremarkable. No calcified stones. No ductal dilation. Pancreas: Unremarkable. No mass. No ductal dilation. Spleen: Unremarkable. No splenomegaly. Adrenals: Unremarkable. No mass. Kidneys and ureters: Mild bilateral hydronephrosis. Nonobstructing punctate right renal calculus. No obstructing nephrolithiasis. Stomach and bowel: The colon is fluid-filled, this is consistent with diarrheal state. Diverticulosis. No obstruction. No mucosal thickening. PELVIS: Appendix: No findings to suggest acute appendicitis. Bladder: Unremarkable. No mass. Reproductive: Unremarkable as visualized. ABDOMEN and PELVIS: Intraperitoneal space: Unremarkable. No free air. No significant fluid collection. Bones/joints: There are degenerative changes of the spine. No fracture. No dislocation. Soft tissues: Unremarkable. Vasculature: Mild atherosclerosis. No abdominal aortic aneurysm. Lymph nodes: Unremarkable. No enlarged lymph nodes. IMPRESSION: 1. Mild bilateral hydronephrosis. 2. The colon is fluid-filled, this is consistent with diarrheal state. 3. Nonobstructing punctate right renal calculus. No obstructing nephrolithiasis. 4. Diverticulosis. Pending Results Patient Have Any Pending Studies at Discharge: Yes Discharge Instructions Given to Patient (Per Discharging Provider) PLEASE REFER TO YOUR NEW MEDICATION LIST AND FOLLOW INSTRUCTIONS CAREFULLY. YOUR NEW MEDICATIONS INCLUDE: Ciprofloxacin, metronidazole-antibiotics for colitis Please drink plenty of water. PLEASE CALL YOUR PRIMARY CARE PHYSICIAN OR RETURN TO THE ER IF WITH WORSENING OF SYMPTOMS, INCLUDING Abdominal pain, blood in the stools, fevers or chills, weakness, etc. FOLLOW UP WITH PRIMARY CARE PHYSICIAN OUTLINED ABOVE. [facility] ALICE KHAN [facility] 2 TO 3 WEEKS. CONTACT INFORMATION OUTLINED ABOVE Total Time Total Time Spent Total Time Spent (In Minutes): >30 minutes
== END 2022-10-31 13:00 | disposition home or self-care (01) | DRG 394 ==
LOC: ED 01:04 → EDINP 04:34 → SUATTDRO 04:34 → 2N 06:12